=== PATIENT | female | born 1975 | race Caucasian/White ===

== ENCOUNTER 2019-03-07 12:42 | Observation (INO) ==
[2019-03-07] MEDS ORDERED: ASPIRIN PO ONE (12:51)
--- NOTE | 2019-03-07 13:06 | Diag Imaging Result Doc PS360 ---
EXAM: CHEST-2 VIEWS 03/07/2019 HISTORY: chest pain TECHNIQUE: PA and lateral chest COMMENT: There is a nodule laterally in the left lower lobe which has not changed since 10/19/2017. Otherwise there is no evidence of acute cardiac or pulmonary disease. IMPRESSION: Stable chest. Electronically signed by Martin Haskins 03/07/2019 1:04 PM
[2019-03-07 13:37] LABS: BASO# 0.04 X1000 (0.0-0.2); BASO% 0.4 % (0.0-0.8); EOS% 1.9 % (0.0-10.0); HEMATOCRIT 49.2 % (37.0-47.0); HEMOGLOBIN 16.8 g/dL (12.0-16.0); IMM GRAN# 0.03 X1000 (0.0-0.04); IMM GRAN% 0.3 % (0.0-0.5); LYMPH# 3.74 X1000 (1.2-3.4); LYMPH% 35.5 % (20.5-51.1); MCH 33.7 PG (27-31); MCHC 34.1 g/dL (33-37); MCV 98.6 FL (81-99); MONO# 0.84 X1000 (0.11-0.59); MPV 9.8 FL (7.4-10.4); NEUT% 53.9 % (42.2-75.2); PLT 242 X1000 (130-400); RBC 4.99 XMIL (4.2-5.4); RDW 12.6 % (11.5-14.5); WBC 10.55 X1000 (4.8-10.8)
[2019-03-07 13:48] LABS: INR 1.02; PROTIME 13.5 Seconds (11.0-16.0); PTT 31.4 Seconds (22.3-41.8)
--- NOTE | 2019-03-07 13:48 | EKG Report ---
Test Performed on : 03/07/2019 12:45:53 PM Test Reason : chest pain Blood Pressure : / mmHG Vent. Rate : 060 BPM Atrial Rate : 060 BPM P-R Int : 176 ms QRS Dur : 070 ms QT Int : 404 ms P-R-T Axes : 014 004 046 degrees QTc Int : 404 ms Normal sinus rhythm. Septal infarct , age undetermined Abnormal ECG When compared with ECG of 16-MAR-2018 14:35, Septal infarct is now present Nonspecific T wave abnormality no longer evident in Anterior leads Unconfirmed Result
[2019-03-07 14:30] LABS: AGAP 12; ALB/GLOB RATIO 1.7; ALBUMIN 4.5 g/dL (3.5-5.0); ALKALINE PHOSPHATASE 106 U/L (32-104); BUN 11 mg/dL (8-22); CALCIUM 10.6 mg/dL (8.8-10.2); CHLORIDE 106 mmol/L (98-107); CK PROFILE 50 U/L (24-173); COSMO 279; CREATININE 0.7 mg/dL (0.5-0.9); ESTIMATED GFR > 60; GLUCOSE 98 mg/dL (70-104); GOT 16 U/L (10-30); GPT 13 U/L (10-36); POTASSIUM 4.4 mmol/L (3.5-5.1); SODIUM 140 mmol/L (136-145); TCO2 22 mmol/L (25-35); TOTAL BILIRUBIN 0.45 mg/dL (0.20-1.00); TOTAL PROTEIN 7.2 g/dL (6.3-8.3)
[2019-03-07] MEDS ORDERED: DILAUDID IV ONE (15:05)
--- NOTE | 2019-03-07 15:14 | EKG Report ---
Test Performed on : 03/07/2019 2:59:16 PM Test Reason : CP Blood Pressure : / mmHG Vent. Rate : 052 BPM Atrial Rate : 052 BPM P-R Int : 176 ms QRS Dur : 072 ms QT Int : 416 ms P-R-T Axes : 006 017 062 degrees QTc Int : 386 ms Sinus bradycardia. Septal infarct (cited on or before 07-MAR-2019) Abnormal ECG When compared with ECG of 07-MAR-2019 12:45, (Unconfirmed) No significant change was found Unconfirmed Result
[2019-03-07] MEDS ORDERED: NITROGLYCERIN TOP ONE (16:05)
[2019-03-07] MEDS ORDERED: HEPARIN IV ONE ×2 (16:49→23:34)
[2019-03-07] MEDS ORDERED: HEPARIN IV PRN (16:49)
--- NOTE | 2019-03-07 16:51 | PROVIDER DOCUMENTATION ---
This chart was entered by Anjana Moy Scribe, acting as scribe for Cesar Andrade MD. HPI-Chest Pain - General Chief Complaint: Chest Pain Stated Complaint: CP Time Seen by Provider: 03/07/19 13:18 Source: patient Allergies/Adverse Reactions: Patient Allergies Allergy/AdvReac Type Severity Reaction Status Date / Time latex Allergy Intermediate RASH Verified 10/25/18 07:35 morphine Allergy Intermediate HIVES Verified 10/25/18 07:35 Sulfa (Sulfonamide Allergy Intermediate RASH Verified 10/25/18 07:35 Antibiotics) amitriptyline Allergy Unknown Verified 10/25/18 07:35 fluoxetine [From Prozac] Allergy Unknown Verified 10/25/18 07:35 gabapentin Allergy Unknown Verified 10/25/18 07:35 sulfamethoxazole AdvReac Severe SHORTNESS Verified 10/25/18 07:35 [From Bactrim] OF BREATH trimethoprim [From Bactrim] AdvReac Severe SHORTNESS Verified 10/25/18 07:35 OF BREATH ceftriaxone [From Rocephin] AdvReac Unknown DIARRHEA Verified 10/25/18 07:35 ciprofloxacin [From Cipro] AdvReac NAUSEA/VOMI Verified 10/25/18 07:35 TING pregabalin [From Lyrica] AdvReac NAUSEA/VOMI Verified 10/25/18 07:35 TING Home Medications: Home Medication List Medication Instructions Recorded Confirmed Last Taken Type Hydrocodone/APAP 7.5 mg/325 mg 1 ea PO Q6H PRN PRN #30 tab 07/10/18 07/20/18 07/23/18 08:00 Rx [[place]-7.5] Cephalexin [Keflex] 250 mg PO BID 07/20/18 07/20/18 07/23/18 21:00 History Hydrochlorothiazide [Microzide] 12.5 mg PO DAILY 07/20/18 07/20/18 07/23/18 08:00 History Omeprazole [Prilosec] 20 mg PO BID 07/20/18 07/20/18 07/23/18 21:00 History Hydrocodone/Acetaminophen [[place] 1 each PO Q4H PRN PRN #30 tablet 07/24/18 Unknown Rx 5-325 Tablet] Cephalexin [Keflex] 500 mg PO TID #20 cap 09/29/18 Unknown Rx Hydrocodone/APAP 5 mg/325 mg 1 ea PO Q6H PRN PRN #10 tab 09/29/18 Unknown Rx [[place]-5] Ondansetron [Zofran] 4 mg PO Q6H PRN PRN #20 tab 09/29/18 Unknown Rx Naproxen [EC-Naprosyn] 500 mg PO BID PRN #30 tablet. 10/25/18 Unknown Rx - History of Present Illness-CP Nature of Presenting Problem: 43 yof presents to the ed with c/o productive cough, chest pain and sob. pt sts has recently had an URI and onset of chest pain was [employer]. pt on exam is nontoxic in appearance Location: reports: substernal Chest Pain Radiation: reports: no radiation Quality of Pain: reports: aching Severity in ED: moderate Onset/Duration: just prior to arrival Timing: still present, constant Context/Activities at Onset: reports: light activity Modifying Factors: worse with: breathing, coughing, movement, palpation Associated Symptoms: reports: shortness of breath. denies: abdominal pain, back pain, diaphoresis, dizziness, fever/chills, headache, nausea, vomiting Nitro Today/Relief: no nitro taken today Aspirin Treatment Today: 325 mg x 1, provided by ED Prior Chest Pain/Cardiac Workup: reports: no prior chest pain Similar Symptoms Previously?: No Recently Seen Here or By Another Healthcare Provider: No Review of Systems - Adult - REVIEW OF SYSTEMS - ADULT Constitutional: denies: chills, fever Eyes: reports: no symptoms reported Ears, Nose, Mouth & Throat: reports: no symptoms reported Cardiovascular: reports: see HPI, chest pain. denies: palpitations, syncope Respiratory: reports: see HPI, cough, shortness of breath. denies: wheezing Gastrointestinal: denies: abdominal pain, diarrhea, nausea, vomiting Genitourinary: reports: no symptoms reported Musculoskeletal: reports: no symptoms reported Integumentary: reports: no symptoms reported Neurological: denies: dizziness/vertigo, headache/migraines Psychiatric: reports: no symptoms reported Endocrine: reports: no symptoms reported Hematologic/Lymphatic: reports: no symptoms reported Allergic/Immunologic: reports: no symptoms reported All Other Systems: Reviewed and Negative Past History - Adult - PAST MEDICAL HISTORY-ADULT Review of Records: reports: Old Records Reviewed, Nursing Assessment Review, Medications Reviewed, Social history reviewed & non-contributory. Major Childhood Illnesses: reports: denies history Cardiovascular: reports: HTN Respiratory: reports: sleep apnea Gastrointestinal: reports: cancer (colon, breast), GERD, IBS, ulcer Obstetrical/Gynecological: reports: denies history Genitourinary: reports: kidney stones Musculoskeletal: reports: denies history Neurological: reports: denies history, Seizures/Epilepsy Psychiatric: reports: anxiety Endocrine/Immune: reports: denies history Other Conditions: reports: denies history - PRIOR SURGERIES/PROCEDURES Surgical/Procedure History: reports: cholecystectomy, hysterectomy, orthopedic (extremity) - PRIOR HOSPITALIZATIONS Prior Hospitalizations: reports: for other non-related - IMMUNIZATION STATUS Childhood Immunizations: See Nurse Assessment Flu Vaccine: See Nurse Assessment - FAMILY HISTORY Family History: CAD under 55yo, HTN - SOCIAL HISTORY Smoking: cigarettes, less than 1 pack/day Provider spent 3-5 mins advising pt. on dangers of tobacco.: Discussed manners to quit use, and f/u contacts for add'l counseling. Substance Use: alcohol Alcohol Use Frequency: occasionally Number of drinks per typical drinking period:: 3-4 drinks Living Situation: family Physical Exam-General - PHYSICAL EXAM-ADULT Initial Vital Signs Reviewed: Yes - CONSTITUTIONAL General Appearance: appears well, alert, mild distress - EYES Eyes: PERRL/EOMI, pink conjunctivae - HEAD, EARS, NOSE, MOUTH & THROAT HENMT: moist mucous membranes - NECK Neck: full range of motion, supple, normal inspection - RESPIRATORY Respiratory: chest non-tender, lungs clear, normal breath sounds - CARDIOVASCULAR Cardiovascular: normal peripheral pulses, regular rate, rhythm - CHEST (BREASTS) Chest/Breast: tenderness (substernal) - GASTROINTESTINAL (ABDOMEN) Abdominal Exam: normal bowel sounds, non tender, soft, other (c/o nausea) - LYMPHATIC Lymphatic: no adenopathy - MUSCULOSKELETAL Back Exam: normal inspection, no CVA tenderness, no vertebral tenderness Extremity: normal range of motion, non-tender, normal gait - SKIN Integumentary: normal color, normal turgor, warm/dry - NEUROLOGIC Neurologic: grossly normal - PSYCHIATRIC Psych/Mental Status: normal mood/affect, normal thought content, normal thought process, oriented x 3 - HEART Score HEART Score: History: Moderately Suspicious HEART Score: ECG: Non-Specific Repolarization Disturbance/LBBB/PM HEART Score: Age: < or = 45 Years HEART Score: Risk Factors for Atherosclerotic Disease: > or = 3 Risk Factors or History of Atherosclerotic Disease HEART Score: Troponin: 1-3x Normal Limit Total HEART Score:: 5 Progress - PLAN OF CARE/RESULTS Progress/Plan/Lab Results: Vital Signs - 8 hr 03/07/19 12:48 Temperature 98.8 F Pulse Rate 61 Respiratory Rate 18 Blood Pressure 157/84 O2 Sat by Pulse Oximetry 100 Laboratory Results - last 24 hr 03/07/19 03/07/19 03/07/19 12:57 12:57 12:57 WBC 10.55 RBC 4.99 Hgb 16.8 H Hct 49.2 H MCV 98.6 MCH 33.7 H MCHC 34.1 RDW Std Deviation 12.6 Plt Count 242 MPV 9.8 Immature Gran % (Auto) 0.3 Neut % (Auto) 53.9 Lymph % (Auto) 35.5 Barry % (Auto) 8.0 Eos % (Auto) 1.9 Baso % (Auto) 0.4 Immature Gran # (Auto) 0.03 Neut # (Auto) 5.70 Lymph # (Auto) 3.74 H Barry # (Auto) 0.84 H Eos # (Auto) 0.20 Baso # (Auto) 0.04 PT INR PTT (Actin FS) D-Dimer, Quantitative Sodium 140 Potassium 4.4 Chloride 106 Carbon Dioxide 22 L Anion Gap 12 BUN 11 Creatinine 0.7 Estimated GFR/1.73 m2 > 60 BUN/Creatinine Ratio 16 Glucose 98 Calculated Osmolality 279 Calcium 10.6 H Total Bilirubin 0.45 AST 16 ALT 13 Alkaline Phosphatase 106 H Creatine Kinase 50 Troponin T Nxz-T-Ryudarvjaip Pept 43 Total Protein 7.2 Albumin 4.5 Globulin 2.7 Albumin/Globulin Ratio 1.7 03/07/19 03/07/19 03/07/19 12:57 12:57 12:57 WBC RBC Hgb Hct MCV MCH MCHC RDW Std Deviation Plt Count MPV Immature Gran % (Auto) Neut % (Auto) Lymph % (Auto) Barry % (Auto) Eos % (Auto) Baso % (Auto) Immature Gran # (Auto) Neut # (Auto) Lymph # (Auto) Barry # (Auto) Eos # (Auto) Baso # (Auto) PT 13.5 INR 1.02 PTT (Actin FS) 31.4 D-Dimer, Quantitative < 0.27 Sodium Potassium Chloride Carbon Dioxide Anion Gap BUN Creatinine Estimated GFR/1.73 m2 BUN/Creatinine Ratio Glucose Calculated Osmolality Calcium Total Bilirubin AST ALT Alkaline Phosphatase Creatine Kinase Troponin T 0.053 Jfu-T-Curzwzuucip Pept Total Protein Albumin Globulin Albumin/Globulin Ratio 03/07/19 03/07/19 14:56 14:56 WBC RBC Hgb Hct MCV MCH MCHC RDW Std Deviation Plt Count MPV Immature Gran % (Auto) Neut % (Auto) Lymph % (Auto) Barry % (Auto) Eos % (Auto) Baso % (Auto) Immature Gran # (Auto) Neut # (Auto) Lymph # (Auto) Barry # (Auto) Eos # (Auto) Baso # (Auto) PT INR PTT (Actin FS) D-Dimer, Quantitative Sodium Potassium Chloride Carbon Dioxide Anion Gap BUN Creatinine Estimated GFR/1.73 m2 BUN/Creatinine Ratio Glucose Calculated Osmolality Calcium Total Bilirubin AST ALT Alkaline Phosphatase Creatine Kinase 57 Troponin T 0.272 H D [id number]-I-Rtxlkfvwyjp Pept Total Protein Albumin Globulin Albumin/Globulin Ratio Orders Category Date Time Status Cardiac Monitoring DIRECTED Care 03/07/19 12:51 Active Oxygen Therapy- ED Nursing DIRECTED Care 03/07/19 12:51 Active Saline Loc NOW Care 03/07/19 12:51 Active CHEST-2 VIEWS [RAD] Stat Exams 03/07/19 12:51 Completed CBC WITH DIFF [HEME] DAILY Lab 03/08/19 06:00 Uncollected CBC WITH DIFF [HEME] DAILY Lab 03/09/19 06:00 Uncollected CBC WITH DIFF [HEME] DAILY Lab 03/10/19 06:00 Uncollected CBC WITH ELECTRONIC DIFF [HEME] Stat Lab 03/07/19 12:57 Completed CK PROFILE [SP CHEM] Stat Lab 03/07/19 12:57 Completed CK PROFILE [SP CHEM] Stat Lab 03/07/19 14:56 Completed COMPREHENSIVE METABOLIC PANEL [CHEM] Stat Lab 03/07/19 12:57 Completed D-DIMER [COAG] Stat Lab 03/07/19 12:57 Completed PRO B-NATRIURETIC PEPTIDE Stat Lab 03/07/19 12:57 Completed PROTIME WITH INR [COAG] Stat Lab 03/07/19 12:57 Completed PROTIME WITH INR [COAG] Stat Lab 03/07/19 16:49 Uncollected PTT HEPARIN PROTOCOL [COAG] Q6HR Lab 03/07/19 20:00 Uncollected PTT HEPARIN PROTOCOL [COAG] Q6HR Lab 03/08/19 02:00 Uncollected PTT HEPARIN PROTOCOL [COAG] Q6HR Lab 03/08/19 08:00 Uncollected PTT HEPARIN PROTOCOL [COAG] Q6HR Lab 03/08/19 14:00 Uncollected PTT [COAG] Stat Lab 03/07/19 12:57 Completed PTT [COAG] Stat Lab 03/07/19 16:49 Uncollected TROPONIN T Stat Lab 03/07/19 12:57 Completed TROPONIN T Stat Lab 03/07/19 14:56 Completed Aspirin Med 03/07/19 12:51 Discontinued 325 mg PO NOW ONE Heparin Med 03/07/19 16:49 Once See Dose Instructions IV NOW ONE Heparin Med 03/07/19 16:49 Ordered See Dose Instructions IV PRN PRN Heparin 25,000 Units/D5w Med 03/07/19 17:00 Ordered 25,000 unit in 250 ml IV 12 unit/kg/hr Hydromorphone [Dilaudid] Med 03/07/19 15:05 Discontinued 1 mg IV NOW ONE Nitroglycerin Med 03/07/19 16:05 Discontinued 0.5 inch TOP NOW ONE CP/SOB/Palp >45 yrs of Age Stat Oth 03/07/19 12:51 Ordered EKG [EKG] Stat Ther 03/07/19 12:51 Draft EKG [EKG] Stat Ther 03/07/19 14:28 Draft EKG [EKG] Stat Ther 03/07/19 16:39 Ordered Result Diagrams: 03/07/19 12:57 03/07/19 12:57 - REASSESSMENT Reassessment #1 Time Reassessed: 15:18 Status: unchanged Reassessment #2 Time Reassessed: 16:08 Status: unchanged - EKG 1 Time of EKG reading by physician:: 12:45 EKG Read and Signed by:: Cesar Andrade EKG Interpretation (*Must complete 3 of following elements*): Abnormal Rate: 60 Rhythm: nsr Adger: normal QRS: normal MO Interval: normal ST Wave: normal Comments: septal infarct, age undetermiend 2 Time of EKG reading by physician:: 14:59 EKG Read and Signed by:: Cesar Andrade EKG Interpretation (*Must complete 3 of following elements*): Abnormal Rate: 52 Rhythm: sinus carlita Adger: normal QRS: normal MO Interval: normal ST Wave: normal Comments: septal infarct, age undetermined - XRAY 1 XRAY: Bilateral XRAY Study: Chest Impression: See EMR Report (EXAM: CHEST-2 VIEWS 03/07/2019 HISTORY: chest pain TECHNIQUE: PA and lateral chest COMMENT: There is a nodule laterally in the left lower lobe which has not changed since 10/19/2017. Otherwise there is no evidence of acute cardiac or pulmonary disease. IMPRESSION: Stable chest. Electronically signed by Martin Haskins 03/07/2019 1:04 PM 03/07/19 1304 Interpreting Physician: Martin Haskins MD Dictated Date/Time: 03/07/19 1304 cc: Cesar Andrade MD; Jenny Li) - CONSULTS/PCP/HOSPITALIST Notification #1 *Consult/PCP/Hospitalist*: hospitalist Time Discussed: 16:28 Consult Disposition: Admit #2 Consult: cardiology dr tejada Time Discussed: 16:34 (dr tejada isin the room and requested a 3rd EKG and sts if it is the same pt can stay here if not pt will go to ) Consult Disposition: Will see in ED, other (phone consult) Departure - Departure Date of Disposition Decision: 03/07/19 Time of Disposition Decision: 16:06 DIAGNOSIS: Nonspecific chest pain, Acute coronary syndrome, Tobacco use disorder Disposition: ADMITTED INPATIENT 09 Certified Medical Emergency: Emergent Condition: Stable Referrals and Follow-Ups: Jenny Li CRNP [Primary Care Provider] - - Critical Care Note This patient required my direct & personal management of CC.: Yes Total Time (mins): 45 Critical Care Statement: This patient required my direct personal management to treat or rule out processes, the absence of which, could potentiallly result in sudden, clinically significant life or limb threatening deterioration. Attestation - Physician/ KAMRAN Attestation Patient care was provided by Advanced Practice Provider:: No The physician spent face to face time with patient:: Yes Advanced Practice Provider documentation review:: Supervising physician onsite and consulted in the evaluation and care of this patient. The physician did have a face to face encounter with the patient. This chart was documented by the indicated scribe, (Anjana Moy Scribe) and accurately reflects the services I performed and decisions made by me, Cesar Andrade MD, as attested by the provider's signature.
[2019-03-07] MEDS ORDERED: HEPARIN 25,000 UNITS/D5W 25,000 UNIT/250 ML IV.SOLN IV SCH ×3 (17:00→23:45)
--- NOTE | 2019-03-07 17:07 | EKG Report ---
Test Performed on : 03/07/2019 4:43:58 PM Test Reason : CP Blood Pressure : / mmHG Vent. Rate : 052 BPM Atrial Rate : 052 BPM P-R Int : 166 ms QRS Dur : 072 ms QT Int : 408 ms P-R-T Axes : 019 014 070 degrees QTc Int : 379 ms Sinus bradycardia. Septal infarct (cited on or before 07-MAR-2019) Abnormal ECG When compared with ECG of 07-MAR-2019 14:59, (Unconfirmed) No significant change was found Unconfirmed Result
[2019-03-07] MEDS ORDERED: TYLENOL PO PRN (18:21)
[2019-03-07] MEDS ORDERED: ZOFRAN IV PRN (18:21)
[2019-03-07] MEDS ORDERED: NORCO-7.5 PO PRN (18:56)
[2019-03-07] MEDS ORDERED: NICODERM PATCH TD SCH (19:00)
[2019-03-07] MEDS: DILAUDID IV PRN ×2 (19:22→23:26)
[2019-03-07] MEDS ORDERED: BENADRYL PO PRN (20:17)
--- NOTE | 2019-03-07 20:48 | HISTORY AND PHYSICAL ---
PRIMARY CARE PHYSICIAN: SILVIA Waddell. CHIEF COMPLAINT: Substernal chest pain that radiated to her left arm and left side of her neck with associated shortness of breath and dizziness that began around 11 a.m. and progressively worsened. HISTORY OF PRESENTING ILLNESS: This is a 43-year-old female who presents to [facility] with complaints of substernal chest pain that radiated to her left arm and neck. Stated she felt a lot of pressure sitting on her chest. Also had some associated shortness of breath and dizziness. Her workup showed her first set of troponin to be negative at 0.053. Her second set was positive at 0.272. ER physician spoke with cardiology who wanted to admit here, but patient appears to have had a non-STEMI and will be transferred to [facility] in the a.m. for cardiac cath but will be admitted here overnight for further evaluation and treatment. PAST MEDICAL HISTORY: Of colon cancer, GERD, IBS, hypertension, sleep apnea, kidney stones, seizures, anxiety. PAST SURGICAL HISTORY: Left leg amelia placement, a left shoulder placement, bilateral breast lumpectomy, cholecystectomy, hysterectomy, kidney stent placement and lithotripsy. FAMILY HISTORY: Coronary artery disease in both of her parents. SOCIAL HISTORY: She currently lives with family. Smokes 1 pack of cigarettes a day and has done so for 20+ years and uses alcohol occasionally and smokes marijuana occasionally. ALLERGIES: Latex, morphine, sulfa, amitriptyline, fluoxetine, gabapentin, ceftriaxone, Cipro and pregabalin. HOME MEDICATIONS: Current list will need to be obtained, reconciled, reviewed and restarted as appropriate. We will place an order for nursing to update and confirm home medications. LABORATORY DATA: Showed a white blood cell count of 10.55, hemoglobin 16.8, hematocrit 49.2, platelets 242,000, PT and INR of 13.5 and 1.02 with a D-dimer of less than 0.27. Sodium 140, potassium 4.4, chloride 106, CO2 22, BUN of 11, creatinine 0.7, glucose 98. First set of troponin 0.053. Second set was positive at 0.272. ProBNP of 43. DIAGNOSTIC DATA: Chest x-ray showed a stable chest. EKG showed normal sinus rhythm at 60. REVIEW OF SYSTEMS: She denied any fever, chills, blurred vision. She was positive for dizziness. She was positive for chest pain substernal that radiated down her left arm and the left side of neck. Was also positive for shortness of breath. Denied any abdominal pain, constipation, diarrhea, burning or hurting with urination. PHYSICAL EXAMINATION: VITAL SIGNS: On arrival she had a temperature of 98.8 degrees, pulse 61, respirations 18, blood pressure 157/84, saturating 100% on room air. GENERAL: This is a 43-year-old female who is lying in the bed. Answers questions appropriately. HEENT: Normocephalic, atraumatic. Normal ENT inspection. Oropharynx and nares are clear. Eyes: Pupils are equal, round, and reactive to light and accommodation. Extraocular movements are intact. NECK: Normal inspection, normal range of motion. LUNGS: Clear to auscultation bilaterally with equal lung expansion and chest wall movement. HEART: With regular rate and rhythm. No murmurs, rubs, or gallops. ABDOMEN: Soft, nontender, nondistended. Bowel sounds are present x4 quadrants. MUSCULOSKELETAL: She had 5/5 strength x4 extremities. NEUROLOGICAL: The cranial nerves 2 through 12 appear grossly intact. ASSESSMENT: 1. Chest pain. 2. Non-ST elevation myocardial infarction. 3. Tobacco abuse. 4. Hypertension. PLAN: She will be admitted to the PVC unit [facility]. Consult Cardiology. Placed on a heparin drip per protocol, was given an aspirin 325 mg p.o. x1 in the emergency room. Consult Cardiology. Patient is to be transferred to [facility] in the a.m. for a left heart catheterization, will be n.p.o. after midnight. I will give her a healthy heart diet at this time, and further orders after seen by attending and by garden consultant. Dictated by SILVIA Mi for Sushant Soto MD cc: SILVIA Mi CRNP agree with above. the following is my own face to face assessment. patient with nstemi. heart: RRR on exam currently. evaluated by cardiology who plan on transfer to [place] in the morning for heart cath. [facility]OSPITALJonathan
[2019-03-07] MEDS ORDERED: LIPITOR PO ONE (21:27)
[2019-03-07] MEDS ORDERED: PLAVIX PO ONE (21:28)
[2019-03-08] MEDS: DILAUDID IV PRN ×2 (03:20→07:36)
--- NOTE | 2019-03-08 04:08 | CARDIOLOGY CONSULTATION ---
DATE: 03/07/2019 Ms. Alonso is a 5th 43-year-old lady with strong family history of coronary artery disease. Her sister and parents have had coronary artery disease at a young age. Comes with complaints of chest pain which started this morning, lasted for about 45 minutes, a retrosternal chest discomfort. Came to the emergency room. First set of cardiac enzymes was negative. Second set was abnormal. Her 1st electrocardiogram revealed normal sinus rhythm. QRS patterns were noted in the septum, and there were nonspecific ST changes noted in V1, V2. Patient was given Dilaudid. Patient is pain free. Symptoms of chest pain associated with shortness of breath. There are no palpitations. There is no dizziness or syncope. REVIEW OF SYSTEM: A 14-point review of systems was done.Gastrointestinal: There is no history of nausea, vomiting, diarrhea. There is no history of hematemesis or melena. Central Nervous System: No focal weakness to suggest a CVA or TIA. Genitourinary: There is no dysuria or hematuria. Respiratory: There is no history of cough, expectoration, hemoptysis. Constitutional: There is no history of fevers or chills. PAST MEDICAL HISTORY: Hypertension, gastroesophageal reflux disease. HABITS: She smokes. HOME MEDICATIONS: Hydrochlorothiazide and Nexium. PHYSICAL EXAMINATION: Vital Signs: Blood pressure was 120/80. Cardiovascular System: Normal jugular venous pressure. There was no thyromegaly. There is no carotid bruit. First and second heart sounds were heard. There was no S3 gallop. Respiratory System: Normal air entry. There are no crepitations. Abdomen was soft, nontender. There was no guarding or rigidity. Bowel sounds were heard. Central Nervous System: Alert and oriented. Was moving all 4 extremities. DIAGNOSTIC STUDIES: Laboratory examination revealed sodium 140, potassium 4.4, BUN 11, creatinine 0.7, alkaline phosphate is 106. Troponin abnormal at 0.272, first troponin was negative. ALT was normal. Hematology: WBC 10.5, hemoglobin 16.8, hematocrit 49, platelet count of 242. Chest x-ray unremarkable. ASSESSMENT AND PLAN: Ms. Magdalena Alonso is a 43-year-old lady with history of smoking, hypertension, strong family history of coronary artery disease, who comes with complaints of chest pain. She has non-Q-wave myocardial infarction. We will start her on aspirin, heparin drip per standard protocol, beta blockers; however, her heart rate is 52. We will hold off on the beta-blockers at the present time. I have discussed with the patient we will plan for left heart catheterization in the morning. She has had multiple EKGs, revealed a septal myocardial infarction with nonspecific minimal less than 0.5 ST elevation. No change in serial EKGs. cc: Denver King MD [facility]
[2019-03-08] MEDS: PROTONIX PO SCH ×2 (05:21→06:00)
[2019-03-08 06:05] LABS: AGAP 11; BUN 10 mg/dL (8-22); CALCIUM 9.4 mg/dL (8.8-10.2); CHLORIDE 105 mmol/L (98-107); COSMO 277; CREATININE 0.7 mg/dL (0.5-0.9); ESTIMATED GFR > 60; GLUCOSE 107 mg/dL (70-104); POTASSIUM 4.1 mmol/L (3.5-5.1); SODIUM 139 mmol/L (136-145); TCO2 23 mmol/L (25-35)
[2019-03-08 06:18] LABS: BASO# 0.03 X1000 (0.0-0.2); BASO% 0.2 % (0.0-0.8); EOS# 0.21 X1000 (0.0-0.7); EOS% 1.6 % (0.0-10.0); HEMATOCRIT 46.7 % (37.0-47.0); IMM GRAN# 0.04 X1000 (0.0-0.04); IMM GRAN% 0.3 % (0.0-0.5); LYMPH# 2.91 X1000 (1.2-3.4); LYMPH% 21.7 % (20.5-51.1); MCH 33.8 PG (27-31); MCHC 34.3 g/dL (33-37); MCV 98.7 FL (81-99); MONO# 1.15 X1000 (0.11-0.59); MONO% 8.6 % (1.7-9.3); MPV 9.9 FL (7.4-10.4); NEUT# 9.07 X1000 (1.4-6.5); NEUT% 67.6 % (42.2-75.2); PLT 224 X1000 (130-400); RBC 4.73 XMIL (4.2-5.4); RDW 12.4 % (11.5-14.5); WBC 13.41 X1000 (4.8-10.8)
[2019-03-08] MEDS ORDERED: PRILOSEC PO SCH (07:00)
[2019-03-08 07:41] VITALS: BP 116/94
[2019-03-08] MEDS ORDERED: PLAVIX PO SCH (09:00)
[2019-03-08] MEDS ORDERED: NEXIUM PO SCH (09:00)
[2019-03-08] MEDS ORDERED: ASPIRIN PO SCH (09:00)
[2019-03-08] MEDS ORDERED: LIPITOR PO SCH (21:00)
--- NOTE | 2019-03-09 14:18 | DISCHARGE SUMMARY ---
ADMISSION DATE: 03/07/2019 DISCHARGE DATE: 03/08/2019 PRIMARY CARE PHYSICIAN: SILVIA Waddell. ADMISSION DIAGNOSES: 1. Chest pain. 2. Non-STEMI. 3. Tobacco abuse. 4. Hypertension. DISCHARGE DIAGNOSES: 1. Chest pain. 2. Non-STEMI. 3. Tobacco abuse. 4. Hypertension. SUMMARY OF FINDINGS: This is a 43-year-old female who presented to the ER with complaints of substernal chest pain that radiated to the left arm and neck, felt like a lot of "pressure sitting on her chest" She had some associated shortness of breath and dizziness. Her first set of troponins were negative at 0.053. Her 2nd set was positive at 0.272. Cardiology was consulted, saw the patient and was set up to transfer to [facility] on the morning of 03/08/2019 for further evaluation and treatment for a left heart catheterization. So, she is being discharged at this time to [facility] for further evaluation and treatment. TIME SPENT: This is a 35 minute discharge. Dictated by SILVIA Mi for Sushant Soto MD cc: SILVIA iM CRNP agree with the above. the following is my own face to face assessment. heart: RRR. lungs CTAB. transferring to [place] for likely heart cath. MTDD
== END 2019-03-08 07:30 | disposition short-term general hospital (02) ==
LOC: ED 12:42 → 2N 12:42
PROVIDERS: ATTEND Internal Medicine

== ENCOUNTER 2019-06-12 10:40 | Inpatient (IN) ==
[2019-06-12] MEDS ORDERED: ASPIRIN PO ONE (10:53)
[2019-06-12 11:17] LABS: BASO# 0.04 X1000 (0.0-0.2); BASO% 0.4 % (0.0-0.8); EOS# 0.17 X1000 (0.0-0.7); EOS% 1.8 % (0.0-10.0); HEMATOCRIT 46.2 % (37.0-47.0); HEMOGLOBIN 15.2 g/dL (12.0-16.0); IMM GRAN# 0.06 X1000 (0.0-0.04); IMM GRAN% 0.6 % (0.0-0.5); LYMPH# 2.53 X1000 (1.2-3.4); LYMPH% 26.4 % (20.5-51.1); MCH 32.8 PG (27-31); MCHC 32.9 g/dL (33-37); MCV 99.6 FL (81-99); MONO# 0.86 X1000 (0.11-0.59); MPV 9.3 FL (7.4-10.4); NEUT# 5.93 X1000 (1.4-6.5); NEUT% 61.8 % (42.2-75.2); PLT 298 X1000 (130-400); RBC 4.64 XMIL (4.2-5.4); RDW 12.4 % (11.5-14.5); WBC 9.59 X1000 (4.8-10.8)
[2019-06-12 11:25] LABS: INR 1.02; PROTIME 13.5 Seconds (11.0-16.0)
[2019-06-12 11:26] LABS: PTT 29.5 Seconds (22.3-41.8)
--- NOTE | 2019-06-12 11:28 | Diag Imaging Result Doc PS360 ---
CHEST-2 VIEWS - 06/12/2019 INDICATION: CP COMPARISON: 03/07/2019 FINDINGS: The lungs are normally expanded and clear. Heart size and mediastinal contours are normal. No pneumothorax or pleural effusion. Stable small granuloma in the left lung base. IMPRESSION: Negative exam. Electronically signed by Jorge Luis Sebastian 06/12/2019 11:25 AM
[2019-06-12] MEDS ORDERED: ZOFRAN IV ONE (11:30)
[2019-06-12] MEDS: NITROGLYCERIN SL PRN (11:35)
[2019-06-12 11:41] LABS: AGAP 13; ALB/GLOB RATIO 1.4; ALBUMIN 4.2 g/dL (3.5-5.0); ALKALINE PHOSPHATASE 107 U/L (32-104); BUN 15 mg/dL (8-22); CALCIUM 9.7 mg/dL (8.8-10.2); CHLORIDE 106 mmol/L (98-107); CK PROFILE 33 U/L (24-173); COSMO 282; CREATININE 0.8 mg/dL (0.5-0.9); ESTIMATED GFR > 60; GLUCOSE 101 mg/dL (70-104); GOT 19 U/L (10-30); GPT 23 U/L (10-36); POTASSIUM 4.2 mmol/L (3.5-5.1); SODIUM 141 mmol/L (136-145); TCO2 22 mmol/L (25-35); TOTAL BILIRUBIN 0.35 mg/dL (0.20-1.00); TOTAL PROTEIN 7.1 g/dL (6.3-8.3)
--- NOTE | 2019-06-12 12:05 | EKG Report ---
Test Performed on : 06/12/2019 10:44:54 AM Test Reason : CP Blood Pressure : / mmHG Vent. Rate : 058 BPM Atrial Rate : 058 BPM P-R Int : 160 ms QRS Dur : 078 ms QT Int : 392 ms P-R-T Axes : -01 041 055 degrees QTc Int : 384 ms Sinus bradycardia. Otherwise normal ECG When compared with ECG of 07-MAR-2019 16:43, Criteria for Septal infarct are no longer present T wave inversion no longer evident in Lateral leads Unconfirmed Result
[2019-06-12] MEDS ORDERED: DEMEROL IV ONE (12:30)
[2019-06-12] MEDS ORDERED: ZOFRAN IV PRN (16:33)
[2019-06-12] MEDS ORDERED: LOVENOX SUBQ SCH (16:33)
[2019-06-12] MEDS ORDERED: DUONEB (A & A) INH PRN (16:33)
[2019-06-12] MEDS ORDERED: NORCO-5 PO ONE ×2 (17:04→18:49)
--- NOTE | 2019-06-12 18:12 | HISTORY AND PHYSICAL ---
CHIEF COMPLAINT: Chest pain. HISTORY OF PRESENT ILLNESS: This is a 43-year-old female who presented to the emergency department complaining of chest discomfort. Patient reports some chest pressure in the central thoracic area, not radiating, and worse when she coughs. She reports that that sensation started a few hours back. Patient denies any diaphoreses, any nausea, vomiting associated with that symptom. Patient denies any shortness of breath with that symptom. She denies any sick contacts. PAST MEDICAL HISTORY: 1. Hypertension. 2. Sleep apnea. 3. Kidney stones. 4. Gastroesophageal reflux disease. 5. Irritable bowel syndrome. 6. Colon cancer. 7. Seizures. 8. Anxiety disorder. PAST SURGICAL HISTORY: 1. Bilateral breast lumpectomy. 2. Cholecystectomy. 3. Hysterectomy. 4. Kidney stent placement and lithotripsy. 5. Left leg amelia placement. 6. Left shoulder replacement. FAMILY HISTORY: Positive for coronary artery disease in both of her parents. SOCIAL HISTORY: Patient lives with her sister. Patient smokes 1 pack of cigarettes per day since she was 12. Reports using alcohol socially and smokes marijuana occasionally. ALLERGIES: Patient is allergic to morphine, latex, sulfa, amitriptyline, fluoxetine, gabapentin, ceftriaxone, Cipro, and pregabalin. REVIEW OF SYSTEMS: Eleven systems were reviewed and all symptoms are related to H P. PHYSICAL EXAMINATION: VITAL SIGNS: Temperature 98.1 degrees, heart rate 69, respiratory rate 12, blood pressure 126/79, O2 saturation 98% on room air. GENERAL: This is a 43-year-old female lying in bed, in no acute distress. HEENT: Head is normocephalic, atraumatic. Mucous membranes dry. NECK: No JVD noted. No carotid bruits. No lymphadenopathy. No thyromegaly. CARDIOVASCULAR: S1, S2 heard. No murmurs, gallops, or rubs. Regular rate and rhythm. RESPIRATORY: Decreased breath sounds globally. Minimal wheezing noted in both pulmonary bases. Patient is not using any accessory muscles or having work of breathing. ABDOMEN: Soft. Nontender to palpation. Bowel sounds present. No organomegaly. EXTREMITIES: No clubbing, cyanosis, or edema. Peripheral pulses present in both legs. NEUROLOGICAL: The patient is alert and oriented x3. Moves 4 extremities. LABORATORY DATA: CBC is completely fine. BMP is also okay. D-dimer is negative. ASSESSMENT AND PLAN: 1. Chest pain/chest discomfort. I think this is secondary to chronic obstructive pulmonary disease exacerbation that has not been diagnosed formally yet. It is important to remark that she has been seen in [facility] for suspicion for [id number]-[id number] elevation myocardial infarction and her ejection fraction was evaluated and was 35 to 40%. The coronary system was completely normal on the left heart catheterization. So at this point, I think we are going to do a CT of the chest with contrast, will start antibiotics, breathing treatments, and we will go from there. 2. Hypertension. Blood pressure is under control. We will continue with the same management. 3. Tobacco abuse. Patient has been extensively counseled about quitting smoking. 4. Gastroesophageal reflux disease. We will provide Protonix for this patient. 5. Disposition. We will continue to monitor this patient closely. cc: Chai Griffin MD
[2019-06-12] MEDS ORDERED: HYDROCODONE/APAP 7.5-325/15 ML PO ONE (18:30)
--- NOTE | 2019-06-12 18:31 | PROVIDER DOCUMENTATION ---
This chart was entered by Anjana Moy Scribe, acting as scribe for Eddie Britt MD. HPI-Chest Pain - General Chief Complaint: Chest Pain Stated Complaint: CP Time Seen by Provider: 06/12/19 10:53 Source: patient, family Allergies/Adverse Reactions: Patient Allergies Allergy/AdvReac Type Severity Reaction Status Date / Time latex Allergy Intermediate RASH Verified 06/12/19 11:27 morphine Allergy Intermediate HIVES Verified 06/12/19 11:27 Sulfa (Sulfonamide Allergy Intermediate RASH Verified 06/12/19 11:27 Antibiotics) amitriptyline Allergy Unknown Verified 06/12/19 11:27 fluoxetine [From Prozac] Allergy Unknown Verified 06/12/19 11:27 gabapentin Allergy Unknown Verified 06/12/19 11:27 sulfamethoxazole AdvReac Severe SHORTNESS Verified 06/12/19 11:27 [From Bactrim] OF BREATH trimethoprim [From Bactrim] AdvReac Severe SHORTNESS Verified 06/12/19 11:27 OF BREATH ceftriaxone [From Rocephin] AdvReac Unknown DIARRHEA Verified 06/12/19 11:27 ciprofloxacin [From Cipro] AdvReac NAUSEA/VOMI Verified 06/12/19 11:27 TING pregabalin [From Lyrica] AdvReac NAUSEA/VOMI Verified 06/12/19 11:27 TING Home Medications: Home Medication List Medication Instructions Recorded Confirmed Last Taken Type Aspirin 325 mg PO DAILY 06/12/19 06/12/19 Unknown History Losartan Potassium 25 mg PO DAILY 06/12/19 06/12/19 Unknown History Trazodone [Desyrel] 50 mg PO QHS 06/12/19 06/12/19 Unknown History - History of Present Illness-CP Nature of Presenting Problem: 43 yowf presents to the ed with c/o chest pain radiating into left arm and left thoracic back. pt sts pain onset was 1 hr [employer] and sts "it felt like a horse kicked me in the chest" pt sts pain is worse with exertion. pt sts with pain she had sob, nausea and dizziness and sts "for a second it felt like my heart beat stopped and then it came right back to normal" pt on exam is nontox[place] na appeprance Location: reports: substernal Chest Pain Radiation: reports: arms (left), back (thoracic) Quality of Pain: reports: other ("felt like a horse kicked me in the chest") Severity in ED: moderate Onset/Duration: 1 hour ago Timing: still present Context/Activities at Onset: reports: light activity Modifying Factors: worse with: exercise Associated Symptoms: reports: dizziness, nausea, shortness of breath. denies: syncope Nitro Today/Relief: 0.4 mg x 1, provided by ED, no relief Aspirin Treatment Today: 325 mg x 1, provided by ED Prior Chest Pain/Cardiac Workup: reports: heart attack Similar Symptoms Previously?: Yes Recently Seen Here or By Another Healthcare Provider: Yes (yes pcp) Review of Systems - Adult - REVIEW OF SYSTEMS - ADULT Constitutional: denies: chills, fever Eyes: reports: no symptoms reported Ears, Nose, Mouth & Throat: reports: no symptoms reported Cardiovascular: reports: see HPI, chest pain, palpitations. denies: syncope Respiratory: reports: shortness of breath. denies: cough, wheezing Gastrointestinal: reports: nausea. denies: abdominal pain, diarrhea, vomiting Genitourinary: reports: no symptoms reported Musculoskeletal: reports: see HPI, back pain (left thoracic), other (left arm pain). denies: neck pain Integumentary: reports: no symptoms reported Neurological: denies: dizziness/vertigo, headache/migraines Psychiatric: reports: no symptoms reported Endocrine: reports: no symptoms reported Hematologic/Lymphatic: reports: no symptoms reported Allergic/Immunologic: reports: no symptoms reported All Other Systems: Reviewed and Negative Past History - Adult - PAST MEDICAL HISTORY-ADULT Review of Records: reports: Old Records Reviewed, Nursing Assessment Review, Medications Reviewed, Social history reviewed & non-contributory. 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) Respiratory: reports: sleep apnea Gastrointestinal: reports: cancer (colon, breast), GERD, IBS, ulcer Obstetrical/Gynecological: reports: denies history Genitourinary: reports: kidney stones Musculoskeletal: reports: denies history Hand Dominance: Right Handed Neurological: reports: Seizures/Epilepsy Psychiatric: reports: anxiety, ptsd Endocrine/Immune: reports: denies history Other Conditions: reports: denies history - PRIOR SURGERIES/PROCEDURES Surgical/Procedure History: reports: cholecystectomy, hysterectomy, orthopedic (extremity), other (vaginal) - PRIOR HOSPITALIZATIONS Prior Hospitalizations: reports: for other non-related - IMMUNIZATION STATUS Childhood Immunizations: See Nurse Assessment Flu Vaccine: See Nurse Assessment - FAMILY HISTORY Family History: reviewed, not pertinent - SOCIAL HISTORY Smoking: cigarettes, greater than 1 pack/day Provider spent 3-5 mins advising pt. on dangers of tobacco.: Discussed manners to quit use, and f/u contacts for add'l counseling. Substance Use: alcohol, marijuana Living Situation: family Physical Exam-General - PHYSICAL EXAM-ADULT Initial Vital Signs Reviewed: Yes - CONSTITUTIONAL General Appearance: appears well, alert, no apparent distress (pt is nontoxic in appearance) - EYES Eyes: PERRL/EOMI, pink conjunctivae - HEAD, EARS, NOSE, MOUTH & THROAT HENMT: moist mucous membranes - NECK Neck: non-tender, full range of motion, normal inspection - RESPIRATORY Respiratory: chest non-tender, lungs clear, normal breath sounds - CARDIOVASCULAR Cardiovascular: normal peripheral pulses, regular rate, rhythm - CHEST (BREASTS) Chest/Breast: deferred - GASTROINTESTINAL (ABDOMEN) Abdominal Exam: normal bowel sounds, non tender, soft, other (c/o nausea) - GENITOURINARY Female Genitalia/Pelvic Exam: deferred Rectal Exam: deferred Hemoccult Exam: deferred - LYMPHATIC Lymphatic: no adenopathy - MUSCULOSKELETAL Back Exam: normal inspection, no CVA tenderness, no vertebral tenderness Extremity: normal range of motion, non-tender, normal gait, normal inspection - SKIN Integumentary: normal color, normal turgor, warm/dry - NEUROLOGIC Neurologic: grossly normal - PSYCHIATRIC Psych/Mental Status: normal mood/affect, normal thought content, normal thought process, oriented x 3 - HEART Score HEART Score: History: Slightly Suspicious HEART Score: ECG: Non-Specific Repolarization Disturbance/LBBB/PM HEART Score: Age: < or = 45 Years HEART Score: Risk Factors for Atherosclerotic Disease: > or = 3 Risk Factors or History of Atherosclerotic Disease HEART Score: Troponin: < or = Normal Limit Total HEART Score:: 3 Progress - PLAN OF CARE/RESULTS Progress/Plan/Lab Results: Vital Signs - 8 hr 06/12/19 10:44 06/12/19 14:30 Temperature 98.1 F 98.1 F Pulse Rate 65 69 Respiratory Rate 18 12 Blood Pressure 139/92 126/79 O2 Sat by Pulse Oximetry 100 98 Laboratory Results - last 24 hr 06/12/19 06/12/19 06/12/19 10:59 10:59 10:59 WBC 9.59 RBC 4.64 Hgb 15.2 Hct 46.2 MCV 99.6 H MCH 32.8 H MCHC 32.9 L RDW Std Deviation 12.4 Plt Count 298 MPV 9.3 Immature Gran % (Auto) 0.6 H Neut % (Auto) 61.8 Lymph % (Auto) 26.4 [place] % (Auto) 9.0 Eos % (Auto) 1.8 Baso % (Auto) 0.4 Immature Gran # (Auto) 0.06 H Neut # (Auto) 5.93 Lymph # (Auto) 2.53 [place] # (Auto) 0.86 H Eos # (Auto) 0.17 Baso # (Auto) 0.04 PT INR PTT (Actin FS) D-Dimer, Quantitative Sodium 141 Potassium 4.2 Chloride 106 Carbon Dioxide 22 L Anion Gap 13 BUN 15 Creatinine 0.8 Estimated GFR/1.73 m2 > 60 BUN/Creatinine Ratio 19 Glucose 101 Calculated Osmolality 282 Calcium 9.7 Total Bilirubin 0.35 AST 19 ALT 23 Alkaline Phosphatase 107 H Creatine Kinase 33 Troponin T Gtz-G-Dxhaopmvrxd Pept 23 Total Protein 7.1 Albumin 4.2 Globulin 2.9 Albumin/Globulin Ratio 1.4 06/12/19 06/12/19 06/12/19 10:59 10:59 10:59 WBC RBC Hgb Hct MCV MCH MCHC RDW Std Deviation Plt Count MPV Immature Gran % (Auto) Neut % (Auto) Lymph % (Auto) [place] % (Auto) Eos % (Auto) Baso % (Auto) Immature Gran # (Auto) Neut # (Auto) Lymph # (Auto) [place] # (Auto) Eos # (Auto) Baso # (Auto) PT 13.5 INR 1.02 PTT (Actin FS) 29.5 D-Dimer, Quantitative < 0.27 Sodium Potassium Chloride Carbon Dioxide Anion Gap BUN Creatinine Estimated GFR/1.73 m2 BUN/Creatinine Ratio Glucose Calculated Osmolality Calcium Total Bilirubin AST ALT Alkaline Phosphatase Creatine Kinase Troponin T < 0.010 Kqe-E-Cgryagnrvcl Pept Total Protein Albumin Globulin Albumin/Globulin Ratio 06/12/19 06/12/19 16:32 16:32 WBC RBC Hgb Hct MCV MCH MCHC RDW Std Deviation Plt Count MPV Immature Gran % (Auto) Neut % (Auto) Lymph % (Auto) [place] % (Auto) Eos % (Auto) Baso % (Auto) Immature Gran # (Auto) Neut # (Auto) Lymph # (Auto) [place] # (Auto) Eos # (Auto) Baso # (Auto) PT INR PTT (Actin FS) D-Dimer, Quantitative Sodium Potassium Chloride Carbon Dioxide Anion Gap BUN Creatinine Estimated GFR/1.73 m2 BUN/Creatinine Ratio Glucose Calculated Osmolality Calcium Total Bilirubin AST ALT Alkaline Phosphatase Creatine Kinase 28 Troponin T < 0.010 Ort-P-Arhkakkwxso Pept Total Protein Albumin Globulin Albumin/Globulin Ratio Orders Category Date Time Status Admit - [facility] Routine AdmDCTranf 06/12/19 16:33 Active Activity - Up with Assistance ORDERED Care 06/12/19 16:33 Active Cardiac Monitoring DIRECTED Care 06/12/19 10:53 Active Nursing- MD Consult Request ROUTINE Care 06/12/19 16:19 Active Oxygen Therapy- ED Nursing DIRECTED Care 06/12/19 10:53 Active Saline Loc NOW Care 06/12/19 10:53 Active Z-Document. for Tele Applied ORDERED Care 06/12/19 16:23 Active MD [Physician/Provider Consults] Routine Cons 06/12/19 16:19 Ordered Heart Healthy Diet Diet 06/12/19 16:33 Active CHEST-2 VIEWS [RAD] Stat Exams 06/12/19 10:[address] THORAX W/CONTRAST [CT] Routine Exams 06/13/19 16:38 Ordered CBC WITH ELECTRONIC DIFF [HEME] Stat Lab 06/12/19 10:59 Completed CK PROFILE [SP CHEM] Q8H Lab 06/12/19 16:32 Completed CK PROFILE [SP CHEM] Q8H Lab 06/13/19 00:20 Ordered CK PROFILE [SP CHEM] Q8H Lab 06/13/19 08:20 Ordered CK PROFILE [SP CHEM] Stat Lab 06/12/19 10:59 Completed COMPREHENSIVE METABOLIC PANEL [CHEM] Stat Lab 06/12/19 10:59 Completed D-DIMER [COAG] Stat Lab 06/12/19 10:59 Completed PRO B-NATRIURETIC PEPTIDE Stat Lab 06/12/19 10:59 Completed PROTIME WITH INR [COAG] Stat Lab 06/12/19 10:59 Completed PTT [COAG] Stat Lab 06/12/19 10:59 Completed TROPONIN T Q8H Lab 06/12/19 16:32 Completed TROPONIN T Q8H Lab 06/13/19 00:21 Ordered TROPONIN T Q8H Lab 06/13/19 08:21 Ordered TROPONIN T Stat Lab 06/12/19 10:59 Completed Acetaminophen [Tylenol] Med 06/12/19 16:33 Active 650 mg PO Q6H PRN PRN Albuterol 2.5MG/Ipratrop 0.5MG [Duoneb (A & A)] Med 06/12/19 16:33 Active 3 ml INH Q2H PRN PRN Albuterol 2.5MG/Ipratrop 0.5MG [Duoneb (A & A)] Med 06/12/19 19:30 Active 3 ml INH RTQ4H.WA Aspirin Med 06/13/19 09:00 Active 325 mg PO DAILY Aspirin Med 06/12/19 10:53 Discontinued 325 mg PO NOW ONE Enoxaparin [Lovenox] Med 06/12/19 16:33 Active 40 mg SUBQ Q24H Hydrocodone/APAP 5 mg/325 mg [[place]-5] Med 06/12/19 17:04 Discontinued 1 each PO NOW ONE Hydrocodone/APAP 7.5-325/15 ml Med 06/12/19 18:30 Once 5 ml PO NOW ONE Losartan [Cozaar] Med 06/13/19 09:00 Active 25 mg PO DAILY Meperidine [Demerol] Med 06/12/19 12:30 Discontinued 25 mg IV NOW ONE Nitroglycerin Sl [Nitroglycerin] Med 06/12/19 11:27 Active 0.4 mg SL Q5M PRN PRN Ondansetron [Zofran] Med 06/12/19 11:30 Discontinued 4 mg IV NOW ONE Ondansetron [Zofran] Med 06/12/19 16:33 Active 4 mg IV Q4H PRN PRN Piperacillin/Tazobactam [Zosyn] 3.375 gm Med 06/12/19 16:45 Active 0.9% Sodium Chloride Inj [Ns] 50 ml IV Q6H Trazodone [Desyrel] Med 06/12/19 21:00 Active 50 mg PO QHS Aerosol Treatments Routine Oth 06/12/19 16:33 Completed Aerosol Treatments Routine Oth 06/12/19 16:39 Completed Aerosol Treatments Stat Oth 06/12/19 16:39 Completed CP/SOB/Palp >45 yrs of Age Stat Oth 06/12/19 10:53 Ordered Telemetry [OM.EQ] Routine Oth 06/12/19 16:22 Active EKG [EKG] Routine Ther 06/13/19 06:00 Ordered EKG [EKG] Stat Ther 06/12/19 10:53 Draft Echo Spec/Color Doppler Routine Ther 06/12/19 16:21 Completed Transfer/Admit Order [TRANSFER] Routine Transfer 06/12/19 16:28 Ordered Result Diagrams: 06/12/19 10:59 06/12/19 10:59 - REASSESSMENT Reassessment #1 Time Reassessed: 13:57 Status: improving (pt is still calm and in no distress) - EKG 1 Time of EKG reading by physician:: 10:44 EKG Read and Signed by:: Eddie Britt EKG Interpretation (*Must complete 3 of following elements*): Normal Rate: 58 Rhythm: sinus bradycardia [place]: normal QRS: normal [place] Interval: normal ST Wave: normal - XRAY 1 XRAY: Bilateral XRAY Study: Chest Impression: See EMR Report (CHEST-2 VIEWS - 06/12/2019 INDICATION: CP COMPARISON: 03/07/2019 FINDINGS: The lungs are normally expanded and clear. Heart size and mediastinal contours are normal. No pneumothorax or pleural effusion. Stable small granuloma in the left lung base. IMPRESSION: Negative exam. Electronically signed by Jorge Luis Sebastian 06/12/2019 11:25 AM 06/12/19 1125 Interpreting Physician: Jorge Luis Sebastian MD Dictated Date/Time: 06/12/19 1125 cc: Eddie Britt MD; Larry Bowie MD) - CONSULTS/PCP/HOSPITALIST Notification #1 *Consult/PCP/Hospitalist*: hospitalist/spoke with ion Time Discussed: 14:10 (wants cardio consults) Consult Disposition: Admit #2 Consult: cardio spoke with jennifer Time Discussed: 14:24 Reason/Comments: phone consult Departure - Departure Date of Disposition Decision: 06/12/19 Time of Disposition Decision: 13:57 DIAGNOSIS: Tobacco use disorder, Chest pain Disposition: ADMITTED INPATIENT 09 Certified Medical Emergency: Emergent Condition: Fair Referrals and Follow-Ups: Larry Bowie MD [Primary Care Provider] - Discharge Education: Steps to Quit Smoking, [id number] - Critical Care Note This patient required my direct & personal management of CC.: No Attestation - Physician/ KAMRAN Attestation Patient care was provided by Advanced Practice Provider:: No The physician spent face to face time with patient:: Yes Advanced Practice Provider documentation review:: Supervising physician onsite and consulted in the evaluation and care of this patient. The physician did have a face to face encounter with the patient. This chart was documented by the indicated scribe, (Anjana Moy Scribe) and accurately reflects the services I performed and decisions made by me, Eddie Britt MD, as attested by the provider's signature.
[2019-06-12] MEDS: ZOSYN 3.375 GM in NS 50 ML IV SCH (19:14)
[2019-06-12] MEDS: DUONEB (A & A) INH SCH ×2 (19:41→23:45)
[2019-06-12] MEDS ORDERED: DESYREL PO SCH (21:00)
[2019-06-12] MEDS: TYLENOL PO PRN (21:20)
[2019-06-13] MEDS: ZOSYN 3.375 GM in NS 50 ML IV SCH ×3 (01:33→12:58)
[2019-06-13] MEDS ORDERED: NS 500 ML IV ONE (03:32)
--- NOTE | 2019-06-13 07:29 | Diag Imaging Result Doc PS360 ---
EXAM: CHEST-2 VIEWS HISTORY: sob TECHNIQUE: Two views COMPARISON: 06/12/2019 FINDINGS: The lungs are well expanded. The heart is not enlarged. The vessels are not distended. There are no infiltrates. No pleural effusions. Mild scoliosis. Left granuloma. IMPRESSION: No acute abnormality. Electronically signed by Matthew Cohen 06/13/2019 7:26 AM
--- NOTE | 2019-06-13 07:34 | Diag Imaging Result Doc PS360 ---
EXAM: CT THORAX W/CONTRAST INDICATION: pneumonia TECHNIQUE: This exam was performed using automated exposure control, adjustment of mA or kV according to patient size, and/or use of iterative reconstruction technique. COMPARISON: 02/22/2018 FINDINGS: There is a left lower lobe calcified granuloma. There is an even smaller noncalcified nodule that is abutting the fissure in the left lower lobe, stable. This very likely represents a noncalcified granuloma. The lungs are clear, otherwise. There are no airspace consolidations. There is no pleural fluid collection and no pneumothorax. There are calcified left hilar lymph nodes indicating prior granulomatous disease. There is no evidence of significant lymphadenopathy, otherwise. There is no cardiomegaly. Limited views of the upper abdomen are unremarkable. The right thyroid lobe is heterogeneous in there is a potential dominant nodule at the inferior left thyroid lobe. This appears stable. It probably represents multinodular goiter. Consider nonemergent thyroid ultrasound follow-up. IMPRESSION: 1.No evidence of acute chest pathology. 2.Stable thyroid nodularity as described above. Electronically signed by Tal Grimm 06/13/2019 7:31 AM
[2019-06-13] MEDS: TYLENOL PO PRN (07:47)
[2019-06-13] MEDS: DUONEB (A & A) INH SCH ×2 (08:23→12:50)
[2019-06-13 08:38] LABS: BASO# 0.02 X1000 (0.0-0.2); BASO% 0.2 % (0.0-0.8); EOS# 0.18 X1000 (0.0-0.7); EOS% 2.2 % (0.0-10.0); HEMATOCRIT 42.6 % (37.0-47.0); HEMOGLOBIN 13.9 g/dL (12.0-16.0); IMM GRAN# 0.05 X1000 (0.0-0.04); IMM GRAN% 0.6 % (0.0-0.5); LYMPH# 2.44 X1000 (1.2-3.4); LYMPH% 29.8 % (20.5-51.1); MCH 33.1 PG (27-31); MCHC 32.6 g/dL (33-37); MCV 101.4 FL (81-99); MONO% 8.5 % (1.7-9.3); MPV 9.3 FL (7.4-10.4); NEUT# 4.81 X1000 (1.4-6.5); NEUT% 58.7 % (42.2-75.2); PLT 262 X1000 (130-400); RDW 12.7 % (11.5-14.5)
[2019-06-13] MEDS ORDERED: ASPIRIN PO SCH (09:00)
[2019-06-13] MEDS ORDERED: COZAAR PO SCH (09:00)
[2019-06-13 09:03] LABS: AGAP 12; ALB/GLOB RATIO 1.3; ALBUMIN 3.6 g/dL (3.5-5.0); ALKALINE PHOSPHATASE 93 U/L (32-104); BUN 11 mg/dL (8-22); CALCIUM 9.2 mg/dL (8.8-10.2); CHLORIDE 103 mmol/L (98-107); COSMO 270; CREATININE 0.8 mg/dL (0.5-0.9); ESTIMATED GFR > 60; GLUCOSE 115 mg/dL (70-104); GOT 19 U/L (10-30); GPT 22 U/L (10-36); POTASSIUM 4.3 mmol/L (3.5-5.1); SODIUM 135 mmol/L (136-145); TCO2 20 mmol/L (25-35); TOTAL BILIRUBIN 0.31 mg/dL (0.20-1.00); TOTAL PROTEIN 6.3 g/dL (6.3-8.3)
--- NOTE | 2019-06-13 09:48 | EKG Report ---
Test Performed on : 06/13/2019 09:38:36 AM Test Reason : CP Blood Pressure : / mmHG Vent. Rate : 050 BPM Atrial Rate : 050 BPM P-R Int : 172 ms QRS Dur : 078 ms QT Int : 434 ms P-R-T Axes : 018 046 051 degrees QTc Int : 395 ms Sinus bradycardia. Otherwise normal ECG When compared with ECG of 12-JUN-2019 10:44, (Unconfirmed) No significant change was found Confirmed by Avel PATEL, [place] ([id number]) on 06/14/2019 8:31:21 AM
[2019-06-13] MEDS ORDERED: FLU VACCINE IM ONE (10:51)
[2019-06-13] MEDS: NITROGLYCERIN SL PRN (10:56)
[2019-06-13] MEDS ORDERED: NICODERM PATCH TD SCH (11:15)
--- NOTE | 2019-06-13 11:34 | CARDIOLOGY CONSULTATION ---
DATE: 06/13/2019 REASON FOR CONSULTATION: Cardiology was consulted for chest pain. HISTORY OF PRESENT ILLNESS: A 43-year-old lady comes with complaints of chest pain for the last 1 week. She has been having cough with mucoid expectoration and wheezing as well, and subsequently she has noted chest pain with coughing, and chest pains worsened. She came to the emergency room and was admitted. She was started on antibiotics, and symptomatically she has improved as far as her breathing is concerned and chest pains are concerned. From a cardiac standpoint, she has nonischemic cardiomyopathy and has had focal anterior wall Takotsubo cardiomyopathy. There is no history of palpitations. There is no history of syncope. REVIEW OF SYSTEMS: A 14-point review of systems was done. GI: The patient had some nausea with chest discomfort. There is no hematemesis or melena. Central Nervous System: No focal weakness to suggest a CVA or TIA. Genitourinary: There is no dysuria or hematuria. ALLERGIES: The patient is allergic to morphine, latex, sulfonamides, amitriptyline, fluoxetine, gabapentin, ceftriaxone, ciprofloxacin, and pregabalin. PAST MEDICAL HISTORY: 1. Focal Takotsubo syndrome. Cardiac catheterization on 03/08/2019 revealed normal coronary arteries with anterior wall mid anteroseptal hypokinesis. Ejection fraction during angiography was 40% to 45%. She had an MRI of her cardiac done on 03/09/2019 at [facility]. No myocardial fibrosis or infiltration was noted. Ejection fraction had improved to 60% by that time. 2. Hypertension. 3. Sleep apnea. 4. Kidney stones. 5. Gastroesophageal reflux disease. 6. Irritable bowel syndrome. 7. Colon cancer. 8. Seizure disorder. 9. Bilateral breast lumpectomy. 10. Cholecystectomy. 11. Hysterectomy. 12. Renal stent placement in the past with lithotripsy. 13. Left leg surgery. 14. Left shoulder replacement. HOME MEDICATIONS: Include: 1. Losartan 25 mg a day. 2. Trazodone 50. 3. Enteric-coated aspirin. 4. Klonopin. SOCIAL HISTORY: The patient lives with her sister. Smokes about a pack of cigarettes a day, and is trying to quit. No history of alcohol abuse. Smokes marijuana occasionally. PHYSICAL EXAMINATION: Vital Signs: Blood pressure 126/79. Cardiovascular: Normal jugular venous pressure. There is no thyromegaly. There is no carotid bruit. First and second heart sounds were heard. There was no S3 gallop. Respiratory: Scattered expiratory wheeze. Abdomen: Soft, nontender. There was no guarding or rigidity. Bowel sounds were heard. Central Nervous System: Alert and oriented, moving all 4 extremities. Extremities: No pedal edema. HEENT: Atraumatic, normocephalic. Pupils were equal and reacting to light. IMAGING: Chest CT was done. There was no evidence of any chest pathology. Stable thyroid nodularity noted. ASSESSMENT AND PLAN: Ms. Magdalena Gamboa is a 43-year-old lady with history of hypertension, sleep apnea, focal anterior Takotsubo cardiomyopathy with recent cardiac catheterization and chest pain and abnormal cardiac enzymes at that time on 03/08/2019, who comes with complaints of having cough with mucoid expectoration for the last 1 week, associated with chest pain. RECOMMENDATIONS: 1. From a cardiac standpoint, chest pains are secondary to bronchitis. She has been started on antibiotics. Would recommend continuing the same. 2. From a cardiac standpoint, will continue with her home medications. Will make followup appointments to see us in the office in a couple of weeks. 3. She has had an echocardiogram as well as cardiac catheterization done recently. No testing is planned at the present time from a cardiac standpoint. Thank you for the consult. cc: Denver King MD
[2019-06-13 12:04] VITALS: BP 108/60
--- NOTE | 2019-06-13 13:15 | ECHO REPORT ---
ORDER DATE: 06/12/2019 INDICATION: Chest pain, dyspnea. FINDINGS: 1. The right atrium appears normal in size at 3.1 cm. 2. Mild tricuspid regurgitation. The RV systolic pressure is 24. 3. Normal RV size and systolic function. 4. Trace pulmonic insufficiency. 5. Normal left atrial size with a dimension of 2.9 cm. 6. No mitral valve prolapse. Mild mitral regurgitation. No evidence of mitral stenosis. 7. Normal LV size. End-diastolic dimension of 3.5. Normal wall thicknesses with a posterior and interventricular septal wall thickness of 1 cm. Normal LV systolic function. Calculated EF is 66% with normal wall motion. 8. The aortic valve opens well. No evidence of stenosis or insufficiency. 9. The aorta appears normal on visualized segments. 10. No pericardial effusion seen. cc: MD Jessica Cartagena PA
--- NOTE | 2019-06-14 14:32 | DISCHARGE SUMMARY ---
ADMISSION DATE: 06/12/2019 DISCHARGE DATE: 06/13/2019 DISCHARGE DIAGNOSES: 1. Acute bronchitis. 2. Chest discomfort resolved. 3. Hypertension. 4. Tobacco abuse. 5. Gastroesophageal reflux disease. CONSULTATIONS: Dr. King from Cardiology. PROCEDURES: 1. Chest x-ray done on admission showed negative exam. 2. Echocardiogram Doppler showed ejection fraction of 66% with normal wall motion. No pericardial effusion seen. 3. Chest CT done on admission showed no evidence of acute chest pathology stable. No thyroid nodularity as described below. HOSPITAL COURSE: This is a 43-year-old female who presented to the emergency department complaining of some chest discomfort and some cough. The patient reports the discomfort in the central thoracic area. The patient has been seen in [facility] for chest pain. Apparently, she was ruled out acute coronary syndrome with normal catheterization. Because of suspicion for coronary artery disease likely a possible culprit for this chest pain, patient was admitted to the hospital. She was evaluated by Dr. King from Cardiology. He does not think that this pain is coming from the heart, but most likely from the acute bronchitis. We have started the patient on IV antibiotics. She was not requiring any oxygen supplementation at the time of my dictation so she agreed to go home today with antibiotics and Medrol Dosepak. She is going to be seen by her primary care physician in a week. DISCHARGE PHYSICAL EXAMINATION: Vital Signs: Temperature 98.1 degrees, heart rate 60, respiratory 18, blood pressure 108/60, and O2 saturation 100% on room air. General: This is a 43- year-old female lying in bed in no acute distress. Cardiovascular: S1, S2 heard. No murmurs, gallops, or rubs. Regular rate and rhythm. Respiratory: Decreased breath sounds globally with no wheezing noted. Abdomen: Soft and nontender to palpation. Bowel sounds present. No organomegaly. Extremities: No clubbing, cyanosis, or edema. Peripheral pulses present in both legs. Neurological: The patient is alert and oriented x3. Moves all 4 extremities. DISCHARGE DISPOSITION: Home to self-care. FOLLOW UP: Follow up with his primary care doctor in a week. DISCHARGE MEDICATIONS: We are adding the following medications to her current treatment. 1. Azithromycin 500 mg 1 tablet p.o. daily for 5 days. 2. Medrol Dosepak as directed. 3. DuoNeb inhalers q.4 hours p.r.n. as needed. 4. Losartan 25 mg 1 tablet p.o. daily. 5. Trazodone 50 mg 1 tablet p.o. at bedtime. 6. Aspirin 325 mg 1 tablet p.o. daily. 7. Klonopin 0.5 mg 1 tablet p.o. b.i.d. as needed. cc: Chai Griffin MD MTDD
== END 2019-06-13 14:55 | disposition home or self-care (01) | DRG 202 ==
LOC: ED 10:40 → EDIPHOLD 06-13 01:01 → 4N 06-13 08:44
PROVIDERS: ATTEND Internal Medicine

== ENCOUNTER 2019-10-29 11:55 | Inpatient (IN) ==
[2019-10-29] MEDS ORDERED: ASPIRIN PO ONE (12:06)
--- NOTE | 2019-10-29 12:18 | EKG Report ---
Test Performed on : 10/29/2019 12:00:20 PM Test Reason : CP Blood Pressure : / mmHG Vent. Rate : 078 BPM Atrial Rate : 078 BPM P-R Int : 178 ms QRS Dur : 062 ms QT Int : 356 ms P-R-T Axes : 037 034 045 degrees QTc Int : 405 ms Normal sinus rhythm. Normal ECG When compared with ECG of 13-JUN-2019 09:38, Vent. rate has increased BY 28 BPM Unconfirmed Result
--- NOTE | 2019-10-29 12:20 | Diag Imaging Result Doc PS360 ---
EXAM: CHEST-2 VIEWS HISTORY: CP TECHNIQUE: Two views COMPARISON: 06/13/2019 FINDINGS: The lungs are well expanded. The heart is not enlarged. The vessels are not distended. There are no infiltrates. No pleural effusions. Mild to moderate scoliosis. IMPRESSION: No acute abnormality. Electronically signed by Matthew Cohen 10/29/2019 12:17 PM
[2019-10-29] MEDS ORDERED: NITROGLYCERIN TOP ONE (13:11)
[2019-10-29 13:12] LABS: BASO# 0.13 X1000 (0.0-0.2); BASO% 1.4 % (0.0-0.8); EOS# 0.24 X1000 (0.0-0.7); EOS% 2.5 % (0.0-10.0); HEMATOCRIT 47.4 % (37.0-47.0); HEMOGLOBIN 15.8 g/dL (12.0-16.0); IMM GRAN# 0.03 X1000 (0.0-0.04); IMM GRAN% 0.3 % (0.0-0.5); LYMPH# 3.46 X1000 (1.2-3.4); LYMPH% 36.1 % (20.5-51.1); MCH 33.8 PG (27-31); MCHC 33.3 g/dL (33-37); MCV 101.3 FL (81-99); MONO# 0.89 X1000 (0.11-0.59); MONO% 9.3 % (1.7-9.3); MPV 10.7 FL (7.4-10.4); NEUT# 4.84 X1000 (1.4-6.5); NEUT% 50.4 % (42.2-75.2); PLT 168 X1000 (130-400); RBC 4.68 XMIL (4.2-5.4); RDW 12.8 % (11.5-14.5); WBC 9.59 X1000 (4.8-10.8)
[2019-10-29 13:16] LABS: INR 0.93; PROTIME 12.6 Seconds (11.0-16.0)
--- NOTE | 2019-10-29 13:29 | PROVIDER DOCUMENTATION ---
This chart was entered by Shala Swain Scribe, acting as scribe for Tree Eng MD. HPI-Chest Pain - General Chief Complaint: Chest Pain Stated Complaint: CP,SOB Time Seen by Provider: 10/29/19 12:19 Source: patient Allergies/Adverse Reactions: Patient Allergies Allergy/AdvReac Type Severity Reaction Status Date / Time latex Allergy Intermediate RASH Verified 10/29/19 12:34 morphine Allergy Intermediate HIVES Verified 10/29/19 12:34 Sulfa (Sulfonamide Allergy Intermediate RASH Verified 10/29/19 12:34 Antibiotics) amitriptyline Allergy Unknown Verified 10/29/19 12:34 fluoxetine [From Prozac] Allergy Unknown Verified 10/29/19 12:34 gabapentin Allergy Unknown Verified 10/29/19 12:34 sulfamethoxazole AdvReac Severe SHORTNESS Verified 10/29/19 12:34 [From Bactrim] OF BREATH trimethoprim [From Bactrim] AdvReac Severe SHORTNESS Verified 10/29/19 12:34 OF BREATH ceftriaxone [From Rocephin] AdvReac Unknown DIARRHEA Verified 10/29/19 12:34 ciprofloxacin [From Cipro] AdvReac NAUSEA/VOMI Verified 10/29/19 12:34 TING pregabalin [From Lyrica] AdvReac NAUSEA/VOMI Verified 10/29/19 12:34 TING Home Medications: Home Medication List Medication Instructions Recorded Confirmed Last Taken Type Trazodone [Desyrel] 50 mg PO QHS 06/12/19 10/29/19 10/29/19 History 3 Albuterol 2.5MG/Ipratrop 0.5MG 3 ml INH Q4H PRN PRN #90 neb 06/13/19 10/29/19 10/23/19 Rx [Duoneb (A & A)] Clonazepam [Klonopin] 0.5 mg PO BID PRN 06/13/19 10/29/19 10/29/19 History Cetirizine HCl [Zyrtec] 1 cap PO DAILY 10/29/19 10/29/19 10/29/19 History Lisinopril [Zestril] 1 tab PO DAILY 10/29/19 10/29/19 10/28/19 History - History of Present Illness-CP Nature of Presenting Problem: [id number] presents to ED cc intermittent, sudden onset while walking of left side chest pain that radiates to left arm, dizziness, nausea, diaphoresis, SOB and fatigue since yesterday. She reports pressure in chest feels like being kicked by a horse. She had a NV in 02/2019 but had no stent placed, was told she had a bulge in left ventricle. She spoke with Dr. Carranza her Master Baker this morning and he advised her to come to ED for evaluation. She rates CP is 5/10. She has hx of HTN and GERD. She is nontoxic upon exam. Location: reports: central (left side) Chest Pain Radiation: reports: arms (left) Quality of Pain: reports: pressure Severity in ED: moderate Onset/Duration: 24 hours ago Timing: still present, intermittent Context/Activities at Onset: reports: light activity Modifying Factors: improves with: nothing Associated Symptoms: reports: diaphoresis, dizziness, fatigue, nausea, shortness of breath Nitro Today/Relief: 0.4 mg x 1, provided by ED Aspirin Treatment Today: 325 mg x 1, provided by ED Prior Chest Pain/Cardiac Workup: reports: heart attack Similar Symptoms Previously?: Yes Recently Seen Here or By Another Healthcare Provider: No Review of Systems - Adult - REVIEW OF SYSTEMS - ADULT Constitutional: reports: see HPI, fatique. denies: chills, fever Eyes: reports: no symptoms reported Ears, Nose, Mouth & Throat: reports: no symptoms reported Cardiovascular: reports: see HPI, chest pain. denies: palpitations Respiratory: reports: see HPI, shortness of breath. denies: cough Gastrointestinal: reports: see HPI, nausea. denies: abdominal pain, diarrhea, vomiting Genitourinary: reports: no symptoms reported Musculoskeletal: reports: no symptoms reported Integumentary: reports: no symptoms reported Neurological: reports: see HPI, dizziness/vertigo Psychiatric: reports: no symptoms reported Endocrine: reports: no symptoms reported Hematologic/Lymphatic: reports: no symptoms reported Allergic/Immunologic: reports: no symptoms reported All Other Systems: Reviewed and Negative Past History - Adult - PAST MEDICAL HISTORY-ADULT Review of Records: reports: Nursing Assessment Review, Medications Reviewed, Social history reviewed & non-contributory. Major Childhood Illnesses: reports: denies history Cardiovascular: reports: HTN Respiratory: reports: sleep apnea Gastrointestinal: reports: cancer (colon, breast), GERD, IBS, ulcer Obstetrical/Gynecological: reports: denies history Genitourinary: reports: kidney stones Musculoskeletal: reports: denies history Neurological: reports: denies history, Seizures/Epilepsy Psychiatric: reports: anxiety Endocrine/Immune: reports: denies history Other Conditions: reports: denies history - PRIOR SURGERIES/PROCEDURES Surgical/Procedure History: reports: cholecystectomy, hysterectomy, orthopedic (extremity) - PRIOR HOSPITALIZATIONS Prior Hospitalizations: reports: for other non-related - IMMUNIZATION STATUS Childhood Immunizations: See Nurse Assessment Flu Vaccine: See Nurse Assessment - FAMILY HISTORY Family History: reviewed, not pertinent - SOCIAL HISTORY Smoking: cigarettes, greater than 1 pack/day Provider spent 3-5 mins advising pt. on dangers of tobacco.: Discussed manners to quit use, and f/u contacts for add'l counseling. Physical Exam-General - PHYSICAL EXAM-ADULT Initial Vital Signs Reviewed: Yes - CONSTITUTIONAL General Appearance: appears well, alert, no apparent distress. negative: anxious, combative - EYES Eyes: PERRL/EOMI, pink conjunctivae. negative: photophobia - HEAD, EARS, NOSE, MOUTH & THROAT HENMT: normocephalic/atraumatic, moist mucous membranes. negative: angioedema - NECK Neck: non-tender, full range of motion, supple, normal inspection. negative: C- spine tenderness - RESPIRATORY Respiratory: chest non-tender, lungs clear, normal breath sounds. negative: rhonchi, wheezing - CARDIOVASCULAR Cardiovascular: normal peripheral pulses, regular rate, rhythm, no edema, no murmur. negative: bradycardia, tachycardia - GASTROINTESTINAL (ABDOMEN) Abdominal Exam: normal bowel sounds, non tender, soft. negative: guarding, rebound - LYMPHATIC Lymphatic: no adenopathy. negative: enlargement - MUSCULOSKELETAL Back Exam: normal inspection, no CVA tenderness, no vertebral tenderness Extremity: normal range of motion, non-tender, normal gait, normal inspection, no pedal edema, no calf tenderness, normal capillary refill. negative: deformity, erythema - SKIN Integumentary: normal color, normal turgor, warm/dry. 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 negative: anxious - HEART Score HEART Score: History: Moderately Suspicious HEART Score: ECG: Normal HEART Score: Age: 45-65 Years HEART Score: Risk Factors for Atherosclerotic Disease: > or = 3 Risk Factors or History of Atherosclerotic Disease HEART Score: Troponin: < or = Normal Limit Total HEART Score:: 4 Progress - PLAN OF CARE/RESULTS Progress/Plan/Lab Results: Vital Signs - 8 hr 10/29/19 11:58 10/29/19 13:51 10/29/19 14:40 Temperature 98.0 F Pulse Rate 80 59 L 59 L Respiratory Rate 16 14 18 Blood Pressure 117/73 117/67 103/71 O2 Sat by Pulse Oximetry 100 98 96 Laboratory Results - last 24 hr 10/29/19 10/29/19 10/29/19 12:46 12:46 12:46 WBC RBC Hgb Hct MCV MCH MCHC RDW Std Deviation Plt Count MPV Immature Gran % (Auto) Neut % (Auto) Lymph % (Auto) Jessamine % (Auto) Eos % (Auto) Baso % (Auto) Immature Gran # (Auto) Neut # (Auto) Lymph # (Auto) Jessamine # (Auto) Eos # (Auto) Baso # (Auto) PT INR PTT (Actin FS) D-Dimer, Quantitative Sodium 136 Potassium 4.4 Chloride 102 Carbon Dioxide 23 L Anion Gap 11 BUN 16 Creatinine 0.8 Estimated GFR/1.73 m2 > 60 BUN/Creatinine Ratio 20 Glucose 115 H Calculated Osmolality 274 Calcium 10.3 H Total Bilirubin 0.31 AST 15 ALT 15 Alkaline Phosphatase 108 H Creatine Kinase 36 Troponin T High Sens < 6 [id number] Pept < 5 L Total Protein 7.0 Albumin 4.0 Globulin 3.0 Albumin/Globulin Ratio 1.3 10/29/19 10/29/19 12:46 12:46 WBC 9.59 RBC 4.68 Hgb 15.8 Hct 47.4 H MCV 101.3 H MCH 33.8 H MCHC 33.3 RDW Std Deviation 12.8 Plt Count 168 MPV 10.7 H Immature Gran % (Auto) 0.3 Neut % (Auto) 50.4 Lymph % (Auto) 36.1 Jessamine % (Auto) 9.3 Eos % (Auto) 2.5 Baso % (Auto) 1.4 H Immature Gran # (Auto) 0.03 Neut # (Auto) 4.84 Lymph # (Auto) 3.46 H Jessamine # (Auto) 0.89 H Eos # (Auto) 0.24 Baso # (Auto) 0.13 PT 12.6 INR 0.93 PTT (Actin FS) 26.0 D-Dimer, Quantitative 0.30 Sodium Potassium Chloride Carbon Dioxide Anion Gap BUN Creatinine Estimated GFR/1.73 m2 BUN/Creatinine Ratio Glucose Calculated Osmolality Calcium Total Bilirubin AST ALT Alkaline Phosphatase Creatine Kinase Troponin T High Sens Ssw-[id number] Pept Total Protein Albumin Globulin Albumin/Globulin Ratio Orders Category Date Time Status Cardiac Monitoring DIRECTED Care 10/29/19 12:06 Active Oxygen Therapy- ED Nursing DIRECTED Care 10/29/19 12:06 Active Saline Loc NOW Care 10/29/19 12:06 Active cardiac diet [Heart Healthy Diet] Diet 10/29/19 14:56 Active CHEST-2 VIEWS [RAD] Stat Exams 10/29/19 12:06 Completed CBC WITH ELECTRONIC DIFF [HEME] Stat Lab 10/29/19 12:46 Completed CK PROFILE [SP CHEM] Stat Lab 10/29/19 12:46 Completed COMPREHENSIVE METABOLIC PANEL [CHEM] Stat Lab 10/29/19 12:46 Completed D-DIMER [COAG] Stat Lab 10/29/19 12:46 Completed PRO B-NATRIURETIC PEPTIDE Stat Lab 10/29/19 12:46 Completed PROTIME WITH INR [COAG] Stat Lab 10/29/19 12:46 Completed PTT [COAG] Stat Lab 10/29/19 12:46 Completed TROPONIN T HIGH SENSITIVITY Stat Lab 10/29/19 12:46 Completed Aspirin Med 10/29/19 12:06 Discontinued 325 mg PO NOW ONE Hydromorphone [Dilaudid] Med 10/29/19 14:42 Discontinued 0.5 mg IV NOW ONE Nitroglycerin Med 10/29/19 13:11 Discontinued 0.5 inch TOP NOW ONE Ondansetron [Zofran] Med 10/29/19 14:42 Discontinued 4 mg IV NOW ONE CP/SOB/Palp >45 yrs of Age Stat Oth 10/29/19 12:06 Ordered Oxygen Device Stat Oth 10/29/19 13:12 Active EKG [EKG] Stat Ther 10/29/19 12:06 Draft EKG [EKG] Stat Ther 10/29/19 14:50 Ordered Result Diagrams: 10/29/19 12:46 10/29/19 12:46 - EKG 1 Time of EKG reading by physician:: 12:01 EKG Read and Signed by:: Tree Eng EKG Interpretation (*Must complete 3 of following elements*): Normal Rate: 78 Rhythm: NSR Lipscomb: normal QRS: normal OR Interval: normal - XRAY 1 XRAY: Bilateral XRAY Study: Chest Impression: See EMR Report (IMPRESSION: No acute abnormality. Electronically signed by Matthew Noel 10/29/2019 12:17 PM) - CONSULTS/PCP/HOSPITALIST Notification #1 *Consult/PCP/Hospitalist*: Dr. Dillon [email or web address] #[email or web address] Consult: Dr. Carranza Time Discussed: 14:50 Reason/Comments: admit to oncall physician for observation Consult Disposition: Admit #3 Consult: Dr. Gonzalez Bangura Discussed: 15:00 Consult Disposition: Admit Departure - Departure Date of Disposition Decision: 10/29/19 Time of Disposition Decision: 14:41 DIAGNOSIS: Chest pain Qualifiers: Chest pain type: unspecified Qualified Code(s): R07.9 - Chest pain, unspecified CAD (coronary artery disease) Qualifiers: Coronary Disease-Associated Artery/Lesion type: unspecified vessel or lesion type [place] vs. transplanted heart: unspecified whether [place] or transplanted heart Associated angina: angina presence unspecified Qualified Code(s): I25.10 - Atherosclerotic heart disease of [place] coronary artery without angina pectoris Disposition: ADMITTED INPATIENT 09 Certified Medical Emergency: Emergent Condition: Stable Referrals and Follow-Ups: Larry Bowie MD [Primary Care Provider] - Discharge Education: Steps to Quit Smoking, [id number] - Critical Care Note This patient required my direct & personal management of CC.: No Attestation - Physician/ KAMRAN Attestation Patient care was provided by Advanced Practice Provider:: No The physician spent face to face time with patient:: Yes Advanced Practice Provider documentation review:: Supervising physician onsite and consulted in the evaluation and care of this patient. The physician did have a face to face encounter with the patient. This chart was documented by the indicated scribe, (Shala Swain Scribe) and accurately reflects the services I performed and decisions made by me, Tree Eng MD, as attested by the provider's signature.
[2019-10-29 13:36] LABS: AGAP 11; ALB/GLOB RATIO 1.3; ALKALINE PHOSPHATASE 108 U/L (32-104); BUN 16 mg/dL (8-22); CALCIUM 10.3 mg/dL (8.8-10.2); CHLORIDE 102 mmol/L (98-107); CK PROFILE 36 U/L (24-173); COSMO 274; CREATININE 0.8 mg/dL (0.5-0.9); ESTIMATED GFR > 60; GLUCOSE 115 mg/dL (70-104); GOT 15 U/L (10-30); GPT 15 U/L (10-36); POTASSIUM 4.4 mmol/L (3.5-5.1); SODIUM 136 mmol/L (136-145); TCO2 23 mmol/L (25-35); TOTAL BILIRUBIN 0.31 mg/dL (0.20-1.00)
[2019-10-29] MEDS ORDERED: ZOFRAN IV ONE (14:42)
[2019-10-29] MEDS ORDERED: DILAUDID IV ONE (14:42)
[2019-10-29] MEDS ORDERED: ZOFRAN IV PRN (15:49)
[2019-10-29] MEDS ORDERED: KLONOPIN PO PRN (15:49)
[2019-10-29] MEDS ORDERED: SOLU-MEDROL IV ONE (16:00)
--- NOTE | 2019-10-29 17:26 | HISTORY AND PHYSICAL ---
PRIMARY CARE PROVIDER: Dr. Larry Bowie. PRIMARY BUILDING SERVICES COORDINATOR: Dr. Garcia. CHIEF COMPLAINT: Chest pain and shortness of breath. HISTORY OF PRESENT ILLNESS: Ms. Magdalena Alonso is a 44-year-old female with a medical history of hypertension, Takotsubo syndrome, chronic bronchitis, sleep apnea, GERD, seizures, which is usually aggravated by chocolate, right breast cancer, perineal cancer, seasonal allergies, who is here with complaints of shortness of breath and chest pressure. She states that on Tuesday, she started feeling just tired and weak with fatigue and shortness of breath that carried on until Tuesday and then Tuesday night she used an inhaler. She felt like she could not catch her breath. The inhaler actually made her breathe better and this was after she went hiking with some friends and she felt like it was her seasonal allergies acting up. She still continues to smoke one pack per day. She states that the shortness of breath would come and go. It was worse with activity and then yesterday when she was in the shower she was so short of breath she felt near syncopal, was having dizziness and chest pressure that started then, it would radiate to the left armpit. She had a wet cough. It was nonproductive. She denies any fever. Currently, she denies any chest pain. She does have a headache and some stomach discomfort from taking medication, however, that is very mild. She also states that yesterday she thought her heart rate got up to about 130. She had contacted Dr. Garcia, her report programmer, who said to come here. She has a history of PTSD and survivors guilt. In February of 2019 she had come in with chest pains and was diagnosed with Takotsubo. She had a temporary decrease in her cardiac function. It had gone down to 40% to 45 percent and then in June 2019 had a repeat and her EF is back up to 66%, all associated with the Takotsubo. She has never had a heart attack. Never had to have any cardiac stents. She has never been diagnosed with COPD, but she has been diagnosed with chronic bronchitis and the inhaler she did on Tuesday night actually helped her symptoms, so we will admit her. We will rule her out with her negative cardiac enzymes and EKG in the morning, but currently it appears as this could be a COPD exacerbation. We will treat her in that respect accordingly. PAST MEDICAL HISTORY: 1. Hypertension. 2. Chronic bronchitis. 3. Sleep apnea. No CPAP. 4. Insomnia. 5. Seasonal allergies. 6. Perineal cancer, status post surgery, no chemo or radiation. 7. Right breast cancer, bilateral lumpectomies, no chemo or radiation. 8. Kidney stones. She has had to have lithotripsy and stent. 9. GERD. 10. IBS with diarrhea. 11. Seizure disorder. The last one was two years ago after she realized chocolate was a trigger, so she stopped eating chocolate. 12. Anxiety disorder. 13. Posttraumatic stress disorder with survivors guilt. 14. Takotsubo February 2019, which resolved by June. EF had gone down to 40% to 45%. It is back up to 66%. SURGICAL HISTORY: 1. Bilateral breast lumpectomy. 2. Cholecystectomy. 3. Partial hysterectomy. 4. Left urethral stent placement and removal and lithotripsy. 5. Left leg amelia placement. 6. Left shoulder replacement. 7. Perineal cancer removal. SOCIAL HISTORY: She is a one pack per day smoker, started at the age of 12. Drinks alcohol on the weekends. Smokes marijuana about once a month. Currently living with her boyfriend in [place]. FAMILY HISTORY: Mother had COPD and she started having heart disease in her 50s. Father had brain cancer in his 60s, along with strokes in his 60s. She states that he also had some sort of heart trouble. ALLERGIES: Morphine causes a rash. She also has allergies to latex, sulfa, amitriptyline, fluoxetine, gabapentin, ceftriaxone, Cipro, and pregabalin. HOME MEDICATIONS: 1. Trazodone 50 mg p.o. nightly. 2. Klonopin 0.5 mg p.o. twice daily p.r.n. 3. Lisinopril 10 mg p.o. daily. 4. Zyrtec 10 mg p.o. daily. 5. Albuterol/Atrovent nebulizers every four hours p.r.n. REVIEW OF SYSTEMS: Fourteen-point review of systems are complete and all were negative except those mentioned above in the HPI. PHYSICAL EXAMINATION: VITAL SIGNS: Temperature 98 degrees, heart rate 59, respiratory rate 18, blood pressure 103/71, O2 saturation 96% on 2 L nasal cannula. GENERAL: Ms. Magdalena Alonso is a 44-year-old female. She is in no acute distress. She is able answer questions appropriately. HEENT: Atraumatic, normocephalic. Pupils equal, round, and reactive to light. Extraocular movements intact. Mucous membranes are moist. NECK: Trachea midline. CARDIOVASCULAR: S1, S2. Bradycardic rate and rhythm. No rubs, gallops, murmurs. No lower extremity edema. +2 dorsalis and radial pulses. Negative for JVD or carotid bruits. PULMONARY: Expiratory wheezes noted throughout anterior and posteriorly. No accessory muscle use or work of breathing noted. Tolerating 2 L nasal cannula. GASTROINTESTINAL: Soft, nontender, nondistended. Positive bowel sounds x4. EXTREMITIES: Moves all extremities equally with full range of motion. NEUROLOGIC: Alert and oriented x3. Follows commands. Sensory is intact. SKIN: Warm, dry, intact. LABORATORY DATA: White blood cells 9000, hemoglobin 15, hematocrit 47, platelet count 168,000. INR 0.93, PTT is 26. D-dimer 0.30. Sodium 136, potassium 4.4, BUN 16, creatinine 0.8, glucose 115, calcium 10.3, bilirubin 0.31, AST 15, ALT 15. CK 36, troponin less than 6. ProBNP less than 5. Albumin is 4.0. IMAGING: Chest x-ray with no acute findings. EKG with sinus rhythm, rate 78, QTc 405. ASSESSMENT/PLAN: 1. Chronic obstructive pulmonary disease exacerbation with history of chronic bronchitis and history of continuous tobacco abuse. We will do intravenous steroids, nebulizers, antibiotic therapy and wean oxygen as tolerated. 2. Acute hypoxemic respiratory failure. Again, she can wean off oxygen as long as her saturations remain over 90% to 91%. 3. History of Takotsubo syndrome along with chest pain. We will rule out with serial cardiac enzymes. It was not a coronary artery disease issue in the past and will continue her Klonopin for the anxiety. Currently, the proBNP is not elevated. There are no signs or symptoms of congestive heart failure at this time. 4. Seasonal allergies. We will continue the Zyrtec. 5. Hypertension. Continue lisinopril. 6. Insomnia. Continue her trazodone. 7. Gastroesophageal reflux disease, but she is not treated for, so we will do Prilosec just in case she is having some reflux that is exacerbating the bronchitis or the chronic obstructive pulmonary disease. 8. History of seizures, seizure disorder, but it has been two years. 9. Tobacco abuse. Cessation discussed. We can add a nicotine patch if needed. 10. Deep venous thrombosis prophylaxis. Lovenox. Dictated by SILVIA Jackson for Ezra Roth MD cc: SILVIA Jackson MD
[2019-10-29] MEDS: LOVENOX SUBQ SCH (17:56)
--- NOTE | 2019-10-29 18:05 | HISTORY AND PHYSICAL ---
ADDENDUM: I have seen and examined Ms. Gamboa today. Ms. Gamboa presented because of chest pain associated with shortness of breath, which has been progressively getting worse for the past couple of days. She said she called her housekeeper/laundry assistant's office this morning, and she was advised to come to the emergency room for evaluation and admission. PHYSICAL EXAMINATION: VITAL SIGNS: Upon presenting to the emergency room, blood pressure was 117/73, pulse of 80, respirations 16, temperature is 98.0 degrees. GENERAL: Ms. Gambao is a 44-year-old female. She is in bed. She did not seem to be in any cardiopulmonary distress. HEENT: Mucosa is pink and moist. Anicteric. Acyanotic. NECK: Supple. CHEST: Air entry was bilaterally reduced. There is end expiratory wheezing. CARDIOVASCULAR: Regular rate and rhythm. ABDOMEN: Soft. EXTREMITIES: No pedal edema. CENTRAL NERVOUS SYSTEM: Patient is awake, alert, and oriented. The patient has mild tenderness to costochondral chest wall. IMAGING: Chest x-ray shows no acute abnormality. ASSESSMENT: 1. Atypical chest pain with initial EKG and troponin negative, presumably noncardiac. We will continue to follow up with her cardiac workup and get also Cardiology to evaluate her. 2. History of tobacco use and abuse. 3. Bronchospasm most likely due to undiagnosed chronic obstructive pulmonary disease exacerbation. 4. Erythrocytosis with mildly elevated calcium could be all due to intravascular depletion. 5. Chronic pain syndrome noted. PLAN: We are going to hydrate her so we are going to put her on gentle hydration overnight and re- evaluate her numbers tomorrow. Please refer to the details of the history and physical that have been dictated by the PLASTICS ENGINEERING TEACHER in the chart. I have discussed the plan with her. cc: Ezra Roth MD
--- NOTE | 2019-10-29 18:20 | EKG Report ---
Test Performed on : 10/29/2019 3:25:53 PM Test Reason : pain Blood Pressure : / mmHG Vent. Rate : 051 BPM Atrial Rate : 051 BPM P-R Int : 170 ms QRS Dur : 060 ms QT Int : 412 ms P-R-T Axes : 029 049 036 degrees QTc Int : 379 ms Sinus bradycardia. Otherwise normal ECG When compared with ECG of 29-OCT-2019 12:00, (Unconfirmed) Vent. rate has decreased BY 27 BPM T wave amplitude has increased in Anterior leads Unconfirmed Result
[2019-10-29] MEDS: ZITHROMAX 500 MG/NS 500 MG/250 ML IVPB IV SCH (18:21)
[2019-10-29] MEDS: DILAUDID IV PRN (19:15)
[2019-10-29] MEDS: PULMICORT INH SCH (20:10)
[2019-10-29] MEDS: DUONEB (A & A) INH SCH ×2 (20:11→22:31)
[2019-10-29] MEDS: PRILOSEC PO SCH (20:57)
[2019-10-29] MEDS ORDERED: DESYREL PO SCH (21:00)
[2019-10-30] MEDS: SOLU-MEDROL IV SCH ×3 (00:48→16:01)
[2019-10-30] MEDS: DUONEB (A & A) INH SCH ×4 (04:08→15:57)
[2019-10-30] MEDS: DILAUDID IV PRN ×2 (04:41→11:31)
[2019-10-30] MEDS: PRILOSEC PO SCH (06:13)
--- NOTE | 2019-10-30 07:48 | EKG Report ---
Test Performed on : 10/30/2019 07:32:42 AM Test Reason : chest pain Blood Pressure : / mmHG Vent. Rate : 067 BPM Atrial Rate : 067 BPM P-R Int : 200 ms QRS Dur : 064 ms QT Int : 384 ms P-R-T Axes : 030 015 024 degrees QTc Int : 405 ms Normal sinus rhythm. Normal ECG When compared with ECG of 29-OCT-2019 15:25, (Unconfirmed) T wave amplitude has decreased in Anterior leads Confirmed by Braxton PATEL, Kamran Morales ([id number]) on 10/30/2019 9:37:52 AM
[2019-10-30] MEDS: PULMICORT INH SCH (07:51)
--- NOTE | 2019-10-30 08:51 | Diag Imaging Result Doc PS360 ---
EXAM: CHEST-2 VIEWS - 10/30/2019 HISTORY: short of breath TECHNIQUE: Chest two views COMPARISON: 10/29/2019 FINDINGS: Heart size is normal. The lungs appear clear. There is no pleural effusion or pneumothorax identified. There is S-shaped thoracolumbar scoliosis noted. IMPRESSION: No evidence of acute disease. Electronically signed by Fernando Anderson 10/30/2019 8:49 AM
[2019-10-30] MEDS ORDERED: ZYRTEC PO SCH (09:00)
[2019-10-30] MEDS ORDERED: PRINIVIL PO SCH (09:00)
[2019-10-30] MEDS: TYLENOL PO PRN ×2 (09:18→16:03)
[2019-10-30] MEDS ORDERED: NICODERM PATCH TD SCH (09:30)
[2019-10-30 09:38] LABS: HEMATOCRIT 45.5 % (37.0-47.0); HEMOGLOBIN 15.6 g/dL (12.0-16.0); IMM GRAN# 0.02 X1000 (0.0-0.04); IMM GRAN% 0.2 % (0.0-0.5); LYMPH# 0.87 X1000 (1.2-3.4); LYMPH% 7.1 % (20.5-51.1); MCHC 34.3 g/dL (33-37); MCV 99.1 FL (81-99); MONO# 0.13 X1000 (0.11-0.59); MONO% 1.1 % (1.7-9.3); MPV 9.9 FL (7.4-10.4); NEUT# 11.32 X1000 (1.4-6.5); NEUT% 91.6 % (42.2-75.2); PLT 240 X1000 (130-400); RBC 4.59 XMIL (4.2-5.4); RDW 12.6 % (11.5-14.5); WBC 12.34 X1000 (4.8-10.8)
[2019-10-30 09:41] LABS: AGAP 14; ALB/GLOB RATIO 1.6; ALBUMIN 4.5 g/dL (3.5-5.0); ALKALINE PHOSPHATASE 105 U/L (32-104); BUN 12 mg/dL (8-22); CALCIUM 10.6 mg/dL (8.8-10.2); CHLORIDE 97 mmol/L (98-107); COSMO 275; CREATININE 0.8 mg/dL (0.5-0.9); ESTIMATED GFR > 60; GLUCOSE 261 mg/dL (70-104); GOT 15 U/L (10-30); GPT 16 U/L (10-36); POTASSIUM 4.1 mmol/L (3.5-5.1); SODIUM 133 mmol/L (136-145); TCO2 22 mmol/L (25-35); TOTAL PROTEIN 7.4 g/dL (6.3-8.3)
[2019-10-30 11:07] LABS: LYMPHS 10 % (21-51); SEGS 90 % (42-75)
[2019-10-30 11:47] VITALS: BP 136/81
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
[2019-10-30] MEDS: LOVENOX SUBQ SCH (16:01)
[2019-10-30] MEDS: ZITHROMAX 500 MG/NS 500 MG/250 ML IVPB IV SCH (16:01)
[2019-10-30] MEDS ORDERED: FIORICET PO ONE (16:25)
--- NOTE | 2019-10-30 17:34 | DISCHARGE SUMMARY ---
ADMISSION DATE: 10/29/2019 DISCHARGE DATE: 10/30/2019 DISCHARGE DISPOSITION: Home DISCHARGE CONDITION: Hemodynamically stable. She is not wheezing on examination. She is not complaining of shortness of breath. She is complaining of headache and has been requesting intravenous Dilaudid and I discussed with her about giving her prescription of oral medications. She was advised to have follow up with her regular doctor and have a discussion about hypercalcemia, testing for diabetes, quitting smoking. She understood it. DISCHARGE DIAGNOSES: 1. Acute bronchitis. 2. Active tobacco abuse. 3. Hypercalcemia. 4. Hyperglycemia. 5. Atypical chest pain with negative EKG and troponins. 6. Intravascular volume depletion. 7. Chronic pain syndrome. OTHER DIAGNOSES: 1. History of essential hypertension. 2. History of insomnia. 3. Seasonal allergies. 4. History of perineal cancer, status post surgery. 5. History of right breast cancer, status post bilateral lumpectomy. 6. History of anxiety and posttraumatic stress disorder. 7. History of Takotsubo cardiomyopathy in February 2019. DISCHARGE MEDICATIONS: 1. Trazodone 50 mg at nighttime. 2. Clonazepam 0.5 mg b.i.d. as needed. 3. Lisinopril 10 mg daily. 4. Cetirizine 10 mg daily. 5. Azithromycin 250 mg daily, 3 tablets have been prescribed. 6. Combivent/Respimat inhaler 1 puff inhaled every 6 hours as needed for shortness of breath, 1 inhaler has been prescribed. 7. Fioricet 1 tablet every 8 hours as needed for headache, 10 tablets have been prescribed. 8. Nicotine patch 21 mg daily, 15 patches have been prescribed. 9. Prednisone 40 mg daily for 3 days. 10. Omeprazole 40 mg daily, 15 capsules. PHYSICAL EXAMINATION: Vital Signs: At the time of discharge, temperature 98.7 degrees, pulse 90, respiratory 18, blood pressure 136/81, saturating 98% on room air. General: Ms. Sanchez is not in any acute distress. No pallor, cyanosis, clubbing, or icterus. Lungs: Air entry bilaterally equal. No wheeze, rhonchi, or crackles. Cardiovascular: S1, S2 normal. Regular. No murmur or gallop. Abdomen: Soft, nontender. Extremity: Edema. Neurologic: She was alert and oriented x3. She was able to engage in the conversation meaningfully. LABS: At the time of discharge and admission, WBC 9.5, hemoglobin 15.6, platelets 240,000. Sodium 133, chloride 97, BUN 12, creatinine 0.8. Blood glucose 261. Significant microbiology; none. IMAGING: Chest x-ray on November 05 did not have any acute pathology. Chest x-ray on October 29 did not have any acute pathology. Electrocardiogram on October 28 and October 29 had normal sinus rhythm. CONSULTATIONS DURING HOSPITAL ADMISSION: Cardiology, Dr. aGrcia. Troponin on presentation and discharge was undetectable 3 times. HOSPITAL COURSE SUMMARY: Ms. Sanchez is a 44-year-old lady who presented on 10/29/2019 with chief complaints of chest pain and shortness of breath. She previously had history of Takotsubo cardiomyopathy and on hospital arrival her vitals were largely unremarkable. However, she had been feeling tired and weak and had been short of breath since 5 days prior to presentation. Considering her prior cardiac history, she was admitted for further management and serial troponins and EKGs were performed which were unremarkable. She was also noticed to be wheezing on examination, so she was admitted for further management. The patient was diagnosed with acute bronchitis and was started on inhaled bronchodilators with DuoNeb, intravenous azithromycin, intravenous steroids, as well as nicotine patch, following which her shortness of breath improved and at the time of discharge, she was breathing well on room air without wheeze. She was prescribed oral azithromycin, prednisone and inhaler and was advised to follow up as outpatient with her regular doctor and establish care with a lung doctor. She was also advised about quitting smoking. Regarding her chest pain, cardiology team was consulted who recommended her symptoms of chest pain were atypical and likely related to episode of acute bronchitis, so further cardiac workup was not pursued, and at the time of discharge, she did not have any chest pain. Patient did develop headache and she had a prior history of migraine and the patient mentioned that her current headaches were likely related to her migrainous headache. She was receiving intravenous hydromorphone, which was changed to oral Fioricet at the time of discharge. She was advised to have a discussion with her regular doctor if she needed to be on any prophylactic therapy. TIME SPENT: I spent 25 minutes discharging this patient. The patient was allowed to ask questions. All questions have been answered. cc: Jimy Lyles MD
== END 2019-10-30 18:26 | disposition home or self-care (01) | DRG 202 ==
LOC: ED 11:55 → SUATTDRO 16:26 → 3N 16:26
PROVIDERS: ATTEND Internal Medicine